=== PATIENT | male | born 1950 | race Caucasian/White ===

== ENCOUNTER 2019-10-20 14:56 | Inpatient (IN) | payer MEDICARE, SELFPAY ==
[2019-10-22] VITALS (9 sets, daily range): BP systolic 122–151; BP diastolic 75–84; PULSE 62–85; RESP 12–20; TEMP 36.3–37.1; O2SAT 93–95
[2019-10-22] MEDS: piperacillin-tazobactam 3.375 GM in sodium chloride 0.9% (plus) 50 ML IV ×3 (02:49→17:36)
[2019-10-22] MEDS: D5-NS 0.45% + KCL 20 mEq 20 MEQ/1,000 ML BAG 125 MEQ IV ×4 (02:50→21:45)
[2019-10-22 05:55] LABS: Add RBC Morph No
[2019-10-22 05:56] LABS: Basophils % 0.1 %; Eosinophils # 0.1 10^3/uL (0.0-0.8); Eosinophils % 1.6 %; Hematocrit 41.4 % (42.0-52.0); Hemoglobin 13.8 g/dL (11.7-16.6); Lymphocytes # 1.4 10^3/uL (0.8-4.8); Mean Corpuscular HGB Conc 33.3 g/dL (30.0-36.0); Mean Corpuscular Hemoglobin 30.5 pg (28.0-34.0); Mean Corpuscular Volume 91.4 fL (80-94); Mean Platelet Volume 11.1 fL (7.4-10.4); Monocytes # 1.2 10^3/uL (0.2-0.9); Neutrophils # 5.3 10^3/uL (1.8-7.7); Neutrophils % 65.9 %; Nucleated Red Blood Cells % 0 %; Platelet Count 240 10^3/cmm (130-400); Red Blood Count 4.53 10^6/uL (4.1-5.3); Red Cell Distribution Width 13.2 % (12.1-15.1)
--- NOTE | 2019-10-22 06:00 | XR_ITS ---
WS: [id number] ABDOMEN Supine view of the abdomen CLINICAL INFORMATION: SBO COMPARISON: FINDINGS: Enteric tube with tip in the stomach. Stomach air-fluid level has improved. Improving air-fluid level s in the small bowel. Persistent air within the colon. Pelvic phleboliths. XR/XR abdomen min 2V 45209 IMPRESSION: 1. Improved findings of small bowel obstruction. 2. Enteric tube with tip in stomach but improved air-fluid level
[2019-10-22] MEDS: oxyCODONE-APAP 5-325 mg Tablet 1 TAB PO ×5 (06:19→23:37)
[2019-10-22] MEDS: amlodipine 10 mg Tablet PO (08:00)
[2019-10-22] MEDS: pantoprazole DR 40 mg Tablet PO (08:01)
[2019-10-22] MEDS: donepezil 5 MG Tablet 10 MG PO (08:01)
[2019-10-22] MEDS: venlafaxine 75 mg Tablet PO (08:01)
[2019-10-22] MEDS: montelukast sodium 10 mg Tablet PO (08:01)
[2019-10-22 08:17] LABS: Anion Gap 13.9 (5-19); Blood Urea Nitrogen 30 mg/dL (8-23); Carbon Dioxide 27 mmol/L (22-29); Chloride 98 mmol/L (98-107); Glucose 113 mg/dL (74-106); Potassium 3.9 mmol/L (3.5-5.1); Sodium 135 mmol/L (136-145)
--- NOTE | 2019-10-22 09:46 | P.PN_ITS ---
Subjective Subjective: Interval history: Patient received a milk of molasses enema yesterday, initially did not have any response but overnight had to have the bag emptied out about 5 times He denies any abdominal pain, nausea or vomiting Vitals/I&O/Wt Last Vital Signs Temp 98.8 F 10/22/19 07:21 Pulse 62 10/22/19 07:21 Resp 18 10/22/19 07:21 BP 135/75 10/22/19 07:21 Pulse Ox 93 10/22/19 07:21 10/21/19 10/22/19 10/22/19 22:59 06:59 14:59 Intake Total 654.167 / 654.167 Output Total 1300 / 1300 50 / 50 Balance -1300 / -1300 604.167 / 604.167 Weight last 48 hrs Weight 82.554 kg Physical Exam GI: COMMON NORMALS: soft to palpation INSPECTION: Yes other (Well-healed midline scar, ostomy pink and functioning stool in the bag) PALPATION: Yes soft Data Labs: Other Labs: All Labs last 24 hrs except CBC/BMP 10/21/19 10/21/19 10/22/19 08:53 08:53 05:30 RBC 4.89 4.53 MCV 92.4 91.4 MCH 30.5 30.5 MCHC 33.0 33.3 RDW 13.7 13.2 MPV 11.3 H 11.1 H Neut % (Auto) 66.7 65.9 Lymph % (Auto) 16.3 17.0 [place] % (Auto) 15.4 15.0 Eos % (Auto) 1.2 1.6 Baso % (Auto) 0.1 0.1 Neut # (Auto) 6.3 5.3 Lymph # (Auto) 1.5 1.4 [place]kinson # (Auto) 1.4 H 1.2 H Eos # (Auto) 0.1 0.1 Baso # (Auto) 0.0 0.0 Nucleated RBC % (a uto) 0 0 Nucleated RBCs # 0.0 0.0 Random Glucose 120 H Calcium 9.4 10/22/19 05:30 RBC MCV MCH MCHC RDW MPV Neut % (Auto) Lymph % (Auto) Wilkinson % (Auto) Eos % (Auto) Baso % (Auto) Neut # (Auto) Lymph # (Auto) Wilkinson # (Auto) Eos # (Auto) Baso # (Auto) Nucleated RBC % (a uto) Nucleated RBCs # Random Glucose Calcium 9.0 A&P Assessment and plan (1) Small bowel obstruction: 69-year-old gentleman with small bowel obstruction likely secondary to adhesions currently appears to be resolving. Patient had a large ostomy output last night Start clear liquid diet Clamp NG tube 1 bottle of magnesium citrate If he tolerates clamping his NG tube we will plan for discontinuing the tube later today Status: Acute Code(s): K56.609 - Unspecified intestinal obstruction, unspecified as to partial versus complete obstruction Attestations Medical Necessity Statement*: Small bowel obstruction requiring continued inpatient stay to ensure resolution Coding Level of Care Code Acute Software Applications Specialist for [facility] Diagnoses Small bowel obstruction K56.609
[2019-10-22] MEDS: cetirizine 10 mg Tablet PO (09:57)
[2019-10-22] MEDS: magnesium citrate Btl 296 mL PO ×2 (13:05→17:33)
[2019-10-22] MEDS: enoxaparin 40 mg/0.4 mL Syringe SUBCUT (16:10)
[2019-10-22] MEDS: lactulose oral liq 20 gm/30 mL UDC 10 GM PO (17:33)
[2019-10-22] MEDS: metoprolol tartrate 50 mg Tablet 100 MG PO (20:25)
[2019-10-22] MEDS: atorvastatin 40 mg Tablet 20 MG PO (20:25)
[2019-10-23] VITALS (7 sets, daily range): BP systolic 123–145; BP diastolic 69–77; PULSE 54–65; RESP 16–18; TEMP 36.4; O2SAT 93–97
[2019-10-23] MEDS: piperacillin-tazobactam 3.375 GM in sodium chloride 0.9% (plus) 50 ML IV (01:27)
[2019-10-23] MEDS: oxyCODONE-APAP 5-325 mg Tablet 1 TAB PO (04:05)
[2019-10-23 05:41] LABS: Basophils % 0.1 %; Eosinophils # 0.2 10^3/uL (0.0-0.8); Eosinophils % 2.7 %; Hematocrit 39.3 % (42.0-52.0); Hemoglobin 12.6 g/dL (11.7-16.6); Lymphocytes # 1.3 10^3/uL (0.8-4.8); Lymphocytes % 18.2 %; Mean Corpuscular HGB Conc 32.1 g/dL (30.0-36.0); Mean Corpuscular Hemoglobin 31.1 pg (28.0-34.0); Mean Platelet Volume 10.7 fL (7.4-10.4); Monocytes # 0.9 10^3/uL (0.2-0.9); Monocytes % 12.7 %; Neutrophils # 4.6 10^3/uL (1.8-7.7); Neutrophils % 65.6 %; Nucleated Red Blood Cells % 0 %; Platelet Count 227 10^3/cmm (130-400); Red Blood Count 4.05 10^6/uL (4.1-5.3)
[2019-10-23 05:45] LABS: Add RBC Morph No
[2019-10-23] MEDS: D5-NS 0.45% + KCL 20 mEq 20 MEQ/1,000 ML BAG 125 MEQ IV ×2 (05:48→09:01)
[2019-10-23 06:04] LABS: Anion Gap 12.9 (5-19); Blood Urea Nitrogen 16 mg/dL (8-23); Calcium 8.4 mg/Dl (8.8-10.2); Carbon Dioxide 25 mmol/L (22-29); Chloride 102 mmol/L (98-107); Glucose 118 mg/dL (74-106); Potassium 3.9 mmol/L (3.5-5.1); Sodium 136 mmol/L (136-145)
[2019-10-23] MEDS: venlafaxine 75 mg Tablet PO (09:02)
[2019-10-23] MEDS: montelukast sodium 10 mg Tablet PO (09:03)
[2019-10-23] MEDS: cetirizine 10 mg Tablet PO (09:03)
[2019-10-23] MEDS: pantoprazole DR 40 mg Tablet PO (09:03)
[2019-10-23] MEDS: donepezil 5 MG Tablet 10 MG PO (09:03)
[2019-10-23] MEDS: amlodipine 10 mg Tablet PO (09:03)
[2019-10-23] MEDS: lactulose oral liq 20 gm/30 mL UDC 10 GM PO (09:04)
--- NOTE | 2019-10-23 11:14 | PC.SOCIAL ---
IMM Page 2 of IMM explained to and signed by patient's at bedside. They both verbalize understanding. Initialed, dated, and timed and placed in chart. Copy provided to patient.
--- NOTE | 2019-10-23 12:56 | PM.PN ---
Subjective Subjective: Interval history: Patient has been doing well, had significant ostomy output. Tolerating a full liquid diet. Vitals/I&O/Wt Last Vital Signs Temp 97.5 F L 10/23/19 12:00 Pulse 62 10/23/19 12:00 Resp 16 10/23/19 12:00 BP 145/74 10/23/19 12:00 Pulse Ox 97 10/23/19 12:00 10/22/19 10/23/19 10/23/19 22:59 06:59 14:59 Intake Total 2170 / 3994.167 1120.000 / 3994.167 522.083 / 522.083 Output Total 1275 / 1475 150 / 1475 300 / 300 Balance 895 / 2519.167 970.000 / 2519.167 222.083 / 222.083 Weight last 48 hrs Weight 185 lb 3.2 oz Weight 183 lb 3.2 oz Physical Exam GI: COMMON NORMALS: normal to inspection, nondistended, normoactive bowel sounds INSPECTION: Yes ostomy present (Functioning well) A&P Assessment and plan (1) Small bowel obstruction: Small bowel obstruction resolved with conservative measures DC home on Colace and lactulose Follow-up with Dr. Carrillo for right renal mass Status: Resolved Code(s): K56.609 - Unspecified intestinal obstruction, unspecified as to partial versus complete obstruction Attestations Medical Necessity Statement*: Small bowel obstruction resolved, discharged home Coding Level of Care Code Acute Access Control Specialist for [facility] Fwd Diagnoses Small bowel obstruction K56.609
--- NOTE | 2019-10-23 12:57 | P.DS_ITS ---
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 Patient had undergone colostomy as well as ureteroureterostomy about 15 years ago. Patient has never had an episode of bowel obstruction but recently had been taking a lot of pain medications and presented to the ER with abdominal pain and distention along with a nonfunctioning ostomy. A CT scan showed small bowel obstruction. Patient did not have any evidence of peritonitis. Hospital Course Hospital Course: The patient was admitted to the hospital after an NG tube was placed by Dr. Moya. About 1800 cc of enteric contents were aspirated and patient's abdominal distention and pain improved. Patient subsequently received a milk of molasses enema with significant ostomy output. Patient was then given 3 bottles of magnesium citrate with resolution of obstruction. His NG tube was discontinued and at time of discharge he was tolerating a full liquid diet Physical Exam GI: COMMON NORMALS: normal to inspection, nondistended, normoactive bowel sounds INSPECTION: Yes ostomy present (Functioning) and Yes other Discharge Data Data Completed and Pending: Completed Studies During Hospitalization Category Date Time Status XR abdomen min 2V 27355 Routine Exams 10/22/19 06:00 Completed Pending at discharge Category Date Time Status BMP [Basic Metabo lic Panel] AM LABS Lab 10/24/19 04:00 Ordered Complete Blood Co unt w/Auto AM LABS Lab 10/24/19 04:00 Ordered Labs from last 24 hours 10/23/19 10/23/19 05:29 05:29 WBC 7.0 RBC 4.05 L Hgb 12.6 Hct 39.3 L MCV 97.0 H D MCH 31.1 MCHC 32.1 RDW 13.0 Plt Count 227 MPV 10.7 H Neut % (Auto) 65.6 Lymph % (Auto) 18.2 [place] % (Auto) 12.7 Eos % (Auto) 2.7 Baso % (Auto) 0.1 Neut # (Auto) 4.6 Lymph # (Auto) 1.3 [place] # (Auto) 0.9 Eos # (Auto) 0.2 Baso # (Auto) 0.0 Nucleated RBC % (a uto) 0 Nucleated RBCs # 0.0 Sodium 136 Potassium 3.9 Chloride 102 Carbon Dioxide 25 Anion Gap 12.9 BUN 16 Creatinine 0.9 Glucose 118 H Calcium 8.4 L Vitals: Last Vital Signs Temp 97.5 F L 10/23/19 12:00 Pulse 62 10/23/19 12:00 Resp 16 10/23/19 12:00 BP 145/74 10/23/19 12:00 Pulse Ox 97 10/23/19 12:00 Discharge Plan Discharge Patient Disposition: Home, Self-Care Condition: Stable Prescriptions: New lactulose 20 gram/30 mL Solution 10 g PO BID Qty: 1 RF: 3 Continued venlafaxine 75 mg Tablet 75 mg PO DAILY RF: 0 cetirizine 10 mg Tablet 10 mg PO DAILY RF: 0 metoprolol tartrate 100 mg Tablet 100 mg PO BEDTIME RF: 0 hydrocodone-acetaminophen 5-325 mg Tablet 1 tab PO Q5H PRN (Reason: Pain, Severe) RF: 0 donepezil 10 mg tablet 10 mg PO DAILY RF: 0 amitriptyline 50 mg Tablet 50 mg PO BEDTIME RF: 0 oxycodone-acetaminophen 5-325 mg tablet 5 - 325 tab PO Q4H PRN (Reason: Pain, Severe) RF: 0 amoxicillin 875 mg Tablet 875 mg PO BID RF: 0 amlodipine 10 mg Tablet 10 mg PO DAILY RF: 0 simvastatin 20 mg Tablet 20 mg PO QPM RF: 0 omeprazole 20 mg Capsule,Delayed Release(Dr/Ec) 20 mg PO DAILY RF: 0 montelukast 10 mg tablet 10 mg PO DAILY RF: 0 Discharge Orders: Discharge Order (Routine); Ordered 10/23/19 Ordered By: Jaime Villalobos Referrals: Santino Carrillo MD [Physician] - 1 week ([facility] WILL CALL YOU WITH YOUR APPOINTMENT. PLEASE CALL IF YOU HAVE NOT HEARD FROM THEM BY SUNDAY. Right renal mass on recent CT scan for SBO, has h/o prostate ca) Jaime Villalobos MD [Physician] - (PLEASE FOLLOW UP WITH DR. VILLALOBOS NEEDED.) Discharge Diet: GI Soft Discharge Activity: Resume usual activity Patient Instructions: Lactulose (By mouth), Bowel Obstruction (DC) Discharge Date/Time: 10/23/19 15:30 Discharge Attestations Time Spent in Discharge Care*: less than 30 min Quality Metrics Clinical Quality Measures During this hospital stay, did patient experience: None Coding Level of Care Code Acute Dielectric Machine Operator for [facility] Fwd Diagnoses Small bowel obstruction K56.609
== END 2019-10-23 15:30 | disposition home or self-care (01) | DRG 390 ==
PROVIDERS: Admitting Provider Family Medicine; Family Provider Family Medicine; PCP Family Medicine; Referring Provider Family Medicine; Visit Provider Surgery
DX: K56.50 Intestinal adhesions [bands], unspecified as to partial versus complete obstruction (principal); C61 Malignant neoplasm of prostate; Z93.3 Colostomy status; Z92.3 Personal history of irradiation; Z79.891 Long term (current) use of opiate analgesic; I10 Essential (primary) hypertension; Z87.891 Personal history of nicotine dependence; N28.89 Other specified disorders of kidney and ureter; Z93.6 Other artificial openings of urinary tract status
CPT/HCPCS: 36415; 71045; 74018; 74019; 74177; 80048; 80053; 81001; 82009; 83605; 83690; 85025; 85610; 85730; 87040; 96361; 96374; 96375; 96376; 97161; 97530; 99285; C9113; J1650; J2060; J2405; J2543; J3010; J3490; Q9967

== ENCOUNTER → 2019-10-27 10:32 | Outpatient (BNVA) | payer MEDICARE, SELFPAY | PROVIDERS: Family Provider Family Medicine; PCP Family Medicine; Visit Provider Nurse Practitioner Family | DX: N99.89 Other postprocedural complications and disorders of genitourinary system (principal) | CPT/HCPCS: 81001 ==

== ENCOUNTER 2022-03-06 20:53 | Emergency (ER) | payer MEDICARE, SELFPAY ==
[2022-03-06 20:57] VITALS: BP 184/92; PULSE 77; RESP 16; TEMP 36.6; O2SAT 96; BMI 27.0
--- NOTE | 2022-03-06 21:09 | XRR_ITS ---
PROCEDURE INFORMATION: Exam: XR Left Wrist Exam date and time: 03/06/2022 9:24 PM Age: 71 years old Clinical indication: Pain; Wrist; Left; Additional info: Fall, deformity TECHNIQUE: Imaging protocol: XR Left wrist. Views: 3 or more views. COMPARISON: No relevant prior studies available. FINDINGS: Bones/joints: Comminuted fracture of the distal radius. Fracture extends to the articular surface. There is dorsal angulation of the distal articular surface of the radius. Distal ulna appears intact. Carpal bones appear intact. Soft tissues: Soft tissue swelling noted. XR/XR wrist LT min 3V* [id number] IMPRESSION: Comminuted Colles fracture, left wrist.
--- NOTE | 2022-03-06 21:32 | W.ED.EXTPRO ---
Documented by User: ROSENDA Truong 03/07/22 03:10 HPI - Extremity Problem General: Chief complaint: Extremity Injury, Upper Stated complaint: L wrist injury Time Seen by Provider: 03/06/22 21:19 History of Present Illness: Patient is a 71-year-old male comes to the ED with left wrist injury. 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 After fall patient started developing left wrist pain and swelling. His pain in his left wrist is currently an 8 out of 10. He has not taken anything for pain before coming to the ED. Denies any head trauma or loss of consciousness. Associated symptoms: Deny chest pain, fever(s) or rash Review of Systems Const: Denies: fever(s), chills or fatigue Eyes: Denies: change in vision or eye discomfort ENMT: Denies: throat pain, odynophagia, nasal discharge or nasal congestion Card: Denies: chest pain, palpitations, edema, swelling of feet/ankles, dyspnea on exertion or orthopnea Resp: Denies: dyspnea, productive cough or non-productive cough GI: Denies: abdominal pain, nausea, vomiting, diarrhea, constipation or hematochezia : Denies: flank pain, difficulty urinating, dysuria or hematuria Musc: Reports: extremity pain (left wrist), extremity swelling (left wrist) and limited range of motion (Left wrist due to pain); Denies: neck pain or back pain Skin/Breast: Denies: rash or new lesions Neuro: Denies: headache(s), numbness in extremities or weakness in extremities [facility] ED PFSH: Medical History (Updated 03/10/22 @ 07:04 by Arina Diego MD) Hypertension Prostatic cancer Surgical History H/O hernia repair History of ureterostomy Hx of colostomy Hx of hemorrhoidectomy Family History Father , in his 50's-run over by a car heart disease No problems noted. Mother , in her 80's -colon cancer No problems noted. Social History Smoking and tobacco status: never smoked Alcohol intake: current Alcohol intake frequency: holidays/special occasions only Marital status: Current occupational status: retired Physical Exam Const: COMMON NORMALS: patient oriented x3 and alert GENERAL APPEARANCE: cooperative HENMT: COMMON NORMALS: normocephalic HEAD & SCALP: normocephalic MOUTH: Normal oral and palatal mucosa present THROAT: posterior oropharynx normal and uvula midline Neck/C-Spine: COMMON NORMALS: supple GENERAL: Yes normal visual inspection Resp: COMMON NORMALS: normal respiratory effort, No retractions, No use of accessory muscles and clear to auscultation bilaterally AUSCULTATION: clear to auscultation bilaterally Cardio: COMMON NORMALS: regular rate, regular rhythm, S1 normal heart sound present, S2 normal heart sound present, No gallops present (Cardio), No clicks present (Cardio), No murmurs present (Cardio) and Peripheral pulses 2+ throughout RATE: regular rate RHYTHM: regular rhythm HEART SOUNDS: S1 normal heart sound present and S2 normal heart sound present PERIPHERAL PULSES: Peripheral pulses 2+ throughout GI: COMMON NORMALS: Normal to inspection, nondistended, normoactive bowel sounds present, Soft to palpation, non-tender and no masses PALPATION: Yes Soft to palpation : COMMON NORMALS: Yes no CVA tenderness BLADDER/KIDNEY EXAM: Yes no CVA tenderness Back/Pelvis: COMMON NORMALS: no CVA tenderness Extremity: LEFT UPPER EXTREMITY: Yes wrist Left wrist: Yes inspection (Visible deformity and swelling noted.), Yes palpation (Tenderness over radial aspect of wrist), Yes ROM (Limited due to pain) and Yes neurovascular exam (Intact) Neuro: COMMON NORMALS: patient oriented x3 and moves all extremities SENSORIUM/ORIENTATION: Yes alert Skin: GENERAL SKIN EXAM: dry skin Course Vital Signs: Vital signs: Vital Signs Temperature 97.9 F 03/06/22 20:57 Pulse Rate 77 03/06/22 20:57 Respiratory Rate 20 H 03/06/22 22:07 Blood Pressure 184/92 03/06/22 20:57 Pulse Oximetry 96 03/06/22 20:57 MDM - Extremity (Nontraumatic) Medical Decision Making Patient is a 71-year-old male comes to the ED with fall and left wrist injury. He has visible swelling around the left wrist with noted deformity. Tenderness to palpation over radial aspect of wrist. Limited range of motion due to pain. Neurovascular tact. X-ray left wrist showed comminuted Colles' fracture. Patient was put in a sugar-tong splint. I placed an order with manager case management patient be referred to Ortho for follow-up. Return to ED precautions given. Patient was discharged home with a prescription for hydrocodone for pain. Patient was told case management should contact them next several days to set up an appointment with Ortho. Patient understood and agreed with plan. Lab Data Radiology Impressions Wrist X-Ray 03/06/22 21:09 IMPRESSION: Comminuted Colles fracture, left wrist. Discharge Plan Discharge Patient Disposition: Home Clinical Impression: Wrist fracture, left Qualifiers: Encounter type: initial encounter Fracture type: closed Qualified Code(s): S62.102A - Fracture of unspecified carpal bone, left wrist, initial encounter for closed fracture Condition: Stable Prescriptions: No Action fluticasone furoate 27.5 mcg/actuation spray,suspension 1 spray INTRANASAL ONCE 0RF memantine [Namenda] 10 mg tablet 10 mg PO BID 0RF metoprolol succinate 100 mg tablet extended release 24 hr 100 mg PO DAILY Qty: 90 0RF venlafaxine 75 mg Tablet 75 mg PO DAILY 0RF cetirizine 10 mg Tablet 10 mg PO DAILY 0RF hydrocodone-acetaminophen 5-325 mg Tablet 1 tab PO Q5H PRN (Reason: Pain, Severe) 0RF amlodipine 10 mg Tablet 10 mg PO DAILY 0RF simvastatin 20 mg Tablet 20 mg PO QPM 0RF omeprazole 20 mg Capsule,Delayed Release(Dr/Ec) 20 mg PO DAILY 0RF montelukast 10 mg tablet 10 mg PO DAILY 0RF furosemide 40 mg Tablet 40 mg PO DAILY 0RF potassium chloride 10 mEq tablet extended release 10 meq PO DAILY 0RF loratadine 10 mg tablet 10 mg PO PRN 0RF oxycodone-acetaminophen 5-325 mg tablet 5 - 325 tab PO Q4H PRN (Reason: Pain, Severe) 7 Days Qty: 30 0RF Discharge Orders: Discharge ED (Routine); Ordered 03/06/22 Ordered By: Missael Palacios Referrals: Lamin Lewis MD [Primary Care Provider] - Discharge Diet: Regular Discharge Activity: Limit activity as instructed Patient Instructions: Wrist Fracture in Adults (ED), Opioid Safety Activity Restrictions/Additional Instructions: Follow-up with medical provider as directed. Case management should be contacting you in the next several days to set up an appointment with Ortho for further management of wrist fracture. Take medications as prescribed. Keep splint on and dry and limit activity with left hand. Return to the ER or your medical provider if condition worsens. Please read and understand discharge instructions. Thank you for choosing [facility] for your healthcare needs today. Please realize this is an emergency room and that we are providing you with a medical screening exam and this may not be complete and all inclusive of all the testing and or work up that you may need to determine your ailment or severity of your illness. It is very important that you follow up as instructed or that you return to the Emergency Department should you have concerns or if your condition changes or worsens in any way. Coding Level of Care Code ED Hand Cell Tuber for Chg Fwd Exam Comprehensive Documented by User: Kishore Her MD 03/12/22 02:41 HPI - Extremity Problem General: Chief complaint: Extremity Injury, Upper Stated complaint: L wrist injury Time Seen by Provider: 03/06/22 21:19 [facility] ED PFS: Medical History (Updated 03/10/22 @ 07:04 by Arina Diego MD) Hypertension Prostatic cancer Surgical History H/O hernia repair History of ureterostomy Hx of colostomy Hx of hemorrhoidectomy Family History Father , in his 50's-run over by a car heart disease No problems noted. Mother , in her 80's -colon cancer No problems noted. Social History Smoking and tobacco status: never smoked Alcohol intake: current Alcohol intake frequency: holidays/special occasions only Marital status: Current occupational status: retired Course Vital Signs: Vital signs: Vital Signs Temperature 97.9 F 03/06/22 20:57 Pulse Rate 77 03/06/22 20:57 Respiratory Rate 20 H 03/06/22 22:07 Blood Pressure 184/92 03/06/22 20:57 Pulse Oximetry 96 03/06/22 20:57 MDM - Extremity (Nontraumatic) Medical Decision Making Patient is a 71-year-old male comes to the ED with fall and left wrist injury. He has visible swelling around the left wrist with noted deformity. Tenderness to palpation over radial aspect of wrist. Limited range of motion due to pain. Neurovascular tact. X-ray left wrist showed comminuted Colles' fracture. Patient was put in a sugar-tong splint. I placed an order with manager case management patient be referred to Ortho for follow-up. Return to ED precautions given. Patient was discharged home with a prescription for hydrocodone for pain. Patient was told case management should contact them next several days to set up an appointment with Ortho. Patient understood and agreed with plan. I discussed this case with ROSENDA Truong. I personally reviewed x-ray. Likely no significant improvement in the alignment can be obtained with the ER reduction. Plan to follow-up outpatient with orthopedics. Kishore Her MD Emergency Medicine Lab Data Radiology Impressions Wrist X-Ray 03/06/22 21:09 IMPRESSION: Comminuted Colles fracture, left wrist. Discharge Plan Discharge Patient Disposition: Home Clinical Impression: Wrist fracture, left Qualifiers: Encounter type: initial encounter Fracture type: closed Qualified Code(s): S62.102A - Fracture of unspecified carpal bone, left wrist, initial encounter for closed fracture Condition: Stable Prescriptions: No Action fluticasone furoate 27.5 mcg/actuation spray,suspension 1 spray INTRANASAL ONCE 0RF memantine [Namenda] 10 mg tablet 10 mg PO BID 0RF metoprolol succinate 100 mg tablet extended release 24 hr 100 mg PO DAILY Qty: 90 0RF venlafaxine 75 mg Tablet 75 mg PO DAILY 0RF cetirizine 10 mg Tablet 10 mg PO DAILY 0RF hydrocodone-acetaminophen 5-325 mg Tablet 1 tab PO Q5H PRN (Reason: Pain, Severe) 0RF amlodipine 10 mg Tablet 10 mg PO DAILY 0RF simvastatin 20 mg Tablet 20 mg PO QPM 0RF omeprazole 20 mg Capsule,Delayed Release(Dr/Ec) 20 mg PO DAILY 0RF montelukast 10 mg tablet 10 mg PO DAILY 0RF furosemide 40 mg Tablet 40 mg PO DAILY 0RF potassium chloride 10 mEq tablet extended release 10 meq PO DAILY 0RF loratadine 10 mg tablet 10 mg PO PRN 0RF oxycodone-acetaminophen 5-325 mg tablet 5 - 325 tab PO Q4H PRN (Reason: Pain, Severe) 7 Days Qty: 30 0RF Discharge Orders: Discharge ED (Routine); Ordered 03/06/22 Ordered By: Missael Palacios Referrals: Lamin Lewis MD [Primary Care Provider] - Discharge Diet: Regular Discharge Activity: Limit activity as instructed Patient Instructions: Wrist Fracture in Adults (ED), Opioid Safety Activity Restrictions/Additional Instructions: Follow-up with medical provider as directed. Case management should be contacting you in the next several days to set up an appointment with Ortho for further management of wrist fracture. Take medications as prescribed. Keep splint on and dry and limit activity with left hand. Return to the ER or your medical provider if condition worsens. Please read and understand discharge instructions. Thank you for choosing [facility] for your healthcare needs today. Please realize this is an emergency room and that we are providing you with a medical screening exam and this may not be complete and all inclusive of all the testing and or work up that you may need to determine your ailment or severity of your illness. It is very important that you follow up as instructed or that you return to the Emergency Department should you have concerns or if your condition changes or worsens in any way. Coding Level of Care Code ED Hand Cell Tuber for Daniela Pichardo Exam Comprehensive
[2022-03-06 21:41] VITALS: RESP 20
[2022-03-06] MEDS: morphine 4 mg/mL SDV 1 mL IM (21:41)
[2022-03-06 22:07] VITALS: RESP 20
[2022-03-06] MEDS: oxyCODONE-APAP 5-325 mg Tablet 2 TAB PO (22:07)
--- NOTE | 2022-03-06 22:08 | PC.NURSE ---
2 percocet given for home
--- NOTE | 2022-03-06 22:16 | PC.NURSE ---
splint maded with 28 inches 4inch ortho glass stockette and soft roll and 2 inch juju and 6 inch juju
--- NOTE | 2022-03-08 08:41 | DCPLANNER ---
Addendum entered by Amee Diaz 03/16/22 16:19: Patient had a follow up appointment scheduled for 03.08.22 with ortho - patient did attend appointment. Original Note: mail manager had message to schedule a follow up appointment for patient with ortho. mail manager sent patients information to the front office staff at ortho. Patients information will be printed and reviewed. Clinic will call patient with appointment information.
== END 2022-03-06 22:20 | disposition home or self-care (01) ==
PROVIDERS: Emergency Provider Physician Assistant; PCP Family Medicine
DX: S52.532A Colles' fracture of left radius, initial encounter for closed fracture (principal); W18.09XA Striking against other object with subsequent fall, initial encounter; Y92.79 Other farm location as the place of occurrence of the external cause
CPT/HCPCS: 29125; 73110; 96372; 99283; J2270

== ENCOUNTER → 2022-03-08 11:10 | Outpatient (BNVA) | payer MEDICARE, SELFPAY | PROVIDERS: PCP Family Medicine; Referring Provider Physician Assistant; Visit Provider Specialist | DX: S52.572A Other intraarticular fracture of lower end of left radius, initial encounter for closed fracture (principal); W01.0XXA Fall on same level from slipping, tripping and stumbling without subsequent striking against object, initial encounter; R07.9 Chest pain, unspecified | CPT/HCPCS: 71046; 99204 ==

== ENCOUNTER 2022-03-10 06:02 | Day surgery (SDC) | payer MEDICARE, SELFPAY ==
[2022-03-09 11:11] VITALS: BMI 26.4
[2022-03-10] VITALS (8 sets, daily range): BP systolic 131–169; BP diastolic 74–99; PULSE 80–98; RESP 12–18; TEMP 36.2–36.6; O2SAT 93–97
--- NOTE | 2022-03-10 | SCC_ITS ---
Procedure done: Open reduction internal fixation left distal radius fracture 88.5 seconds of fluoroscopic guidance, for a cumulative dose of 2.2 mGy, was provided to Dr. Diego by the radiology department. C-arm images of the LEFT wrist were saved for the patient's permanent record. [facility]ali[facility]
--- NOTE | 2022-03-10 | XR_ITS ---
WS: [id number] Left wrist, C-arm fluoroscopy, 03/10/2022, Clinical Data: fracture, orif Comparison: Left wrist, 03/06/2022 Findings: Dr. Diego placed a ventral plate on the distal left radius fixed with multiple screws to reduce a com minuted distal left radial fracture. XR/XR wrist LT 2V [id number] Impression: Internal fixation of distal left radial fracture.
--- NOTE | 2022-03-10 06:51 | ANES.PREANE2 ---
Pre-Anesthetic Assessment Height/Weight: Height 1.85 m Weight 90.718 kg Preop Diagnosis: Left distal radius fracture Operation Date: 03/10/22 07:00 Proposed Procedures p OPEN REDUCTION INTERNAL FIXATION LEFT DISTAL RADIUS FRACTURE 04798/S52.509A(Left) - Arina Diego MD Familial anesthetic complications: None Was Beta Cash taken within 24 hours: N/A Was Clonidine taken within 24 hours: N/A Last intake: > 8hrs Social No alcohol and No tobacco Exam alert, oriented x 3, clear to auscultation bilaterally and regular rate & rhythm Airway Mallampati: Class III Dentition: false Pulmonary None reported CV/HEM Hypertension RBBB None reported Hepatic None reported GI Gastroesophageal Reflux Disease Hx colon resection Metabolic None reported Musc/skel None Neuropsych None reported Anesthetic Plan ASA status: 3 Anesthesia: General and Regional (specify below) Risk of > 500 ml blood loss (7ml/kg in children): No Medications/Allergies Home Medications Medication Instructions Recorded Confirmed Last Taken Type amlodipine 10 mg tablet 10 mg PO DAILY 10/21/19 03/10/22 03/10/22 History cetirizine 10 mg tablet 10 mg PO DAILY 10/21/19 03/09/22 03/09/22 History hydrocodone 5 mg-acetaminophen 325 1 tab PO Q5H PRN 10/21/19 03/09/22 03/09/22 History mg tablet montelukast 10 mg tablet 10 mg PO DAILY 10/21/19 03/09/22 03/09/22 History omeprazole 20 mg capsule,delayed 20 mg PO DAILY 10/21/19 03/09/22 03/09/22 History release oxycodone-acetaminophen 5 mg-325 5 - 325 tab PO Q4H PRN 10/21/19 03/09/22 10/18/19 History mg tablet simvastatin 20 mg tablet 20 mg PO QPM 10/21/19 03/09/22 03/09/22 History venlafaxine 75 mg tablet 75 mg PO DAILY 10/21/19 03/10/22 03/09/22 History fluticasone furoate 27.5 1 spray INTRANASAL ONCE 10/27/19 03/09/22 03/09/22 History mcg/actuation nasal spray,suspension metoprolol succinate 100 mg 100 mg PO DAILY #90 tab 04/16/20 03/10/22 03/10/22 Rx tablet,extended release 24 hr memantine 10 mg tablet (Namenda) 10 mg PO BID 03/08/22 03/10/22 03/09/22 History furosemide 40 mg tablet 40 mg PO DAILY 03/09/22 03/09/22 03/09/22 History potassium chloride 10 mEq 10 meq PO DAILY 03/09/22 03/09/22 03/09/22 History tablet,extended release loratadine 10 mg tablet 10 mg PO PRN 03/10/22 03/10/22 Unknown History Allergies Allergy/AdvReac Type Severity Reaction Status Date / Time Sulfa (Sulfonamide Allergy ALGY-Rash Verified 03/09/22 11:03 Antibiotics) [facility] Anesthesia Medical History Hypertension Prostatic cancer Surgical History H/O hernia repair History of ureterostomy Hx of colostomy Hx of hemorrhoidectomy Family History Father , in his 50's-run over by a car heart disease No problems noted. Mother , in her 80's -colon cancer No problems noted. Social History Smoking and tobacco status: never smoked Alcohol intake: current Alcohol intake frequency: holidays/special occasions only Marital status: Current occupational status: retired Data Anesthesia Cardiac Studies: No Data to Display
[2022-03-10] MEDS: sodium chloride 0.9% 1,000 ML 30 ML IV (06:52)
[2022-03-10] MEDS: CELEcoxib 200 mg Capsule 400 MG PO (06:54)
[2022-03-10] MEDS: acetaminophen 1,000 MG/100 ML PIGGYBACK 400 MG IV (06:54)
--- NOTE | 2022-03-10 07:03 | W.PM.OPSUD ---
Surgery/Procedure H&P Update DATE OF PROCEDURE: March 10, 2022 DATE H&P PERFORMED: 03/08/22 H&P UPDATE INFORMATION: I have reviewed H&P completed within last 30 days, I have examined patient prior to procedure, No changes to prior documentation and H&P is in [facility] EMR on date indicated PREOP DIAGNOSIS: Left distal radius fracture PLANNED PROCEDURE: Operation Date: 03/10/22 07:00 Proposed Procedures p OPEN REDUCTION INTERNAL FIXATION LEFT DISTAL RADIUS FRACTURE 09455/S52.509A(Left) - Arina Diego MD Related Problem List Diagnoses (1) Distal radius fracture, left: Qualifiers: Encounter type: initial encounter Fracture type: closed Fracture morphology: other intra-articular Qualified Code(s): S52.572A - Other intraarticular fracture of lower end of left radius, initial encounter for closed fracture
[2022-03-10 08:00] LABS: Blood Urea Nitrogen 30 mg/dL (8-23); Calcium 7.8 mg/dL (8.5-10.5); Carbon Dioxide 20 mmol/L (22-29); Chloride 102 mmol/L (98-107); Glucose 117 mg/dL (65-115); Osmolality Calculated 289 mOsm/kg (285-295); Sodium 136 mmol/L (136-145)
[2022-03-10 08:02] LABS: Anion Gap 17.8 (5-19); Potassium 3.8 mmol/L (3.5-5.1)
[2022-03-10] MEDS: ceFAZolin 1,000 mg SDV 1000 MG IRRIGATION (08:51)
--- NOTE | 2022-03-10 10:13 | P.OP_ITS ---
Operative Report Date of procedure: March 10, 2022 Pre-op diagnosis: Left distal radius fracture Post-op diagnosis: Left distal radius fracture Post-op findings: Significantly displaced comminuted distal radius fracture with displacement dorsally of the distal fragment Procedure done: Open reduction internal fixation left distal radius fracture Implants: [place] distal radius volar plate, intermediate, short Pathology: none sent Surgeon: Arina Diego Drawer Upfitter: [facility] registered respiratory technician Anesthesia: General (Intubated, ASA 3) Estimated blood loss (mL): 5 Tourniquet time (min): 65 (At 250 mmHg) IV fluids (mL): 700 Urine output (mL): 0 (No Red) Complications: None Findings: Significantly displaced dorsal displacement. Comminution. Condition: stable Disposition: PACU (Then return to same-day surgery for discharge home with family) Brief History: This 71 year old male patient presented to the office for definitive treatment of his left distal radius fracture. DOI: 03/06/2022, Patient states he fell after tripping over a cattle panel in his garden.? Patient attempted to stop his fall by putting hands straight out. Patient presented to the [facility] where he was diagnosed with a distal fracture and was placed in a sugar tong splint. At that time, discussion was undertaken with the patient and his , and due to the significant displacement, we elected to proceed with operative intervention in the form of open reduction internal fixation. Consents were signed, questions were answered, and the patient was scheduled for the surgical intervention. Procedure: Patient was brought to the operating theater, and after undergoing adequate general anesthesia, intubated, ASA 3, the patient's left upper extremity was prepped and draped in usual fashion utilizing DuraPrep.? No supplemental block was placed, but the patient will be evaluated prior to discharge, and if needed, this will be discussed with the patient per anesthesia. The patient had a tourniquet placed high on the arm prior to prepping and draping.? Following prepping and draping, the arm was exsanguinated and the tourniquet was elevated.? Total tourniquet time was 65 minutes at 250 mmHg.? Prior to commencement of the surgical procedure, a surgical pause was performed.? At the time of the surgical pause, we confirmed the site and side of surgery as well as the patient's identity and preoperative surgical markings.? We also confirmed availability of equipment and appropriate preoperative IV antibiotics which was Ancef 2 g.? Fluoroscopy was also brought into position so that we could visualize the fracture and hardware throughout the surgical procedure.? The fracture was evaluated prior to tourniquet placement. Following elevation of the tourniquet as well as the surgical pause, appropriate plate was chosen. The skin was marked for appropriate incision length and location. An incision was made along the palmaris longus and continued down onto the volar surface of the radius.? Care was taken to avoid injury throughout the surgical procedure to the median nerve as well as to the radial artery.? The flexor carpi radialis was retracted medially.? We were able to essentially elevate the sheath of the flexor carpi radialis, and then I was able to place my finger directly onto the distal radius.? For the most part, the patient did his own dissection at the time of his injury.? Soft tissues were elevated off the distal radius to allow access to the fracture and also to the volar aspect of the distal radial shaft.? Reduction required manipulation with a [place] elevator secondary to the significant displacement.? Fluoroscopy was used to determine whether or not the reduction was appropriate.? We were able to reduce the fracture nearly anatomically.? We then evaluated the plate and chose the intermediate short Tanner volar distal radius plate.? The plate was attached proximally and distally without difficulty.? A combination of locking and 1 nonlocking screws were utilized to attach the plate.? We had excellent fixation and reduction of the fracture. Fluoroscopy was utilized during the procedure.? Once the plate was fully attached, we had a near anatomic position to the distal radius and the distal radius was out to length.? Being satisfied with position, the area was copiously irrigated. There were no fascial tissues to close, and therefore, we closed the subcutaneous tissues with 3-0 interrupted Monocryl.? Skin was closed in a subcuticular fashion with 4-0 Monocryl.?Sterile dressing was then placed consisting of Dermabond, Steri-Strips, OpSite, fluffed fluffs, sterile soft roll, a volar splint, and an Vinny wrap. The tourniquet was released after 65 minutes. There were no complications. There were no specimens. The procedure was well tolerated. Plan is the patient will be discharged home.
[2022-03-10] MEDS: oxyCODONE-APAP 5-325 mg Tablet 1 TAB PO (10:44)
--- NOTE | 2022-03-10 13:00 | ANE.PACU2 ---
Inpatient post-anesthesia follow up: Airway intact: Yes Vital signs: Temperature 97.8 F Pulse Rate 97 Respiratory Rate 18 Blood Pressure 154/88 Pulse Oximetry 95 Oxygen Delivery Me thod Room Air Oxygen Flow Rate Fraction of Inspir ed Oxygen Hydration adequate: Yes Nausea and vomiting: No Pain level: 1 Mental status: Baseline
== END 2022-03-10 11:08 | disposition home or self-care (01) ==
PROVIDERS: PCP Family Medicine; Visit Provider Specialist
PROC: (CPT 25607; principal; 2022-03-10 07:00)
DX: S52.502A Unspecified fracture of the lower end of left radius, initial encounter for closed fracture (principal); W01.0XXA Fall on same level from slipping, tripping and stumbling without subsequent striking against object, initial encounter; I10 Essential (primary) hypertension; K21.9 Gastro-esophageal reflux disease without esophagitis; Z90.49 Acquired absence of other specified parts of digestive tract; Z85.46 Personal history of malignant neoplasm of prostate
CPT/HCPCS: 25607; 73100; 76000; 80048; C1713; J0690; J1100; J2405; J2704; J2795; J3010; J3490; J7030

== ENCOUNTER → 2022-03-23 08:34 | Outpatient (BNVA) | payer MEDICARE, SELFPAY | PROVIDERS: PCP Family Medicine; Visit Provider Nurse Practitioner Family | DX: Z98.890 Other specified postprocedural states (principal); S52.502A Unspecified fracture of the lower end of left radius, initial encounter for closed fracture; X58.XXXA Exposure to other specified factors, initial encounter | CPT/HCPCS: 73110 ==

== ENCOUNTER → 2022-04-27 10:18 | Outpatient (BNVA) | payer MEDICARE, SELFPAY | PROVIDERS: PCP Family Medicine; Visit Provider Nurse Practitioner Family | DX: Z98.890 Other specified postprocedural states (principal); X58.XXXA Exposure to other specified factors, initial encounter; S52.502A Unspecified fracture of the lower end of left radius, initial encounter for closed fracture | CPT/HCPCS: 73110; 99024 ==

== ENCOUNTER 2022-05-18 08:19 | Outpatient (CLI) | payer MEDICARE, SELFPAY ==
--- NOTE | 2022-05-18 08:38 | NM_ITS ---
WS: [id number] NUCLEAR MEDICINE BONE SCAN Radiopharmaceutical: 23.9 Tc-99m MDP mCi IV Injection site: LEFT wrist Postinjection imaging delay: 1 hr CLINICAL INFORMATION: BONE DENSITY/FATIGUE/RIGHT RENAL MASS COMPARISON: None. FINDINGS: Bone lesions: There are no osseous lesions suspicious for metastatic disease. Soft tissue contours: Normal. 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 Degenerative arthritis both wrists and both knees. Radiotracer uptake distal LEFT radius from prior plate and screw fixation distal radius. NM/NM bone scan whole body* [id number] IMPRESSION: No evidence of osseous metastatic disease.
== END 2022-05-18 08:20 | disposition home or self-care (01) ==
LOC: RAD 08:22
PROVIDERS: PCP Family Medicine; Visit Provider Family Medicine
DX: M85.88 Other specified disorders of bone density and structure, other site (principal); R53.83 Other fatigue
CPT/HCPCS: 78306; A9561

== ENCOUNTER → 2023-04-10 09:48 | Outpatient (BNVA) | payer MEDICARE, SELFPAY | PROVIDERS: PCP Family Medicine; Visit Provider Internal Medicine | DX: R00.2 Palpitations (principal) | CPT/HCPCS: 93225 ==

== ENCOUNTER 2023-11-05 20:00 | Outpatient (CLI) | payer MEDICARE, SELFPAY | END 2023-11-05 20:01 | disposition home or self-care (01) | LOC: SLEEP 11-06 05:15 | PROVIDERS: PCP Family Medicine; Visit Provider Family Medicine | DX: G47.33 Obstructive sleep apnea (adult) (pediatric) (principal); G47.10 Hypersomnia, unspecified; G47.61 Periodic limb movement disorder | CPT/HCPCS: 95810 ==

== ENCOUNTER 2023-11-29 10:49 | Outpatient (CLI) | payer MEDICARE, SELFPAY ==
--- NOTE | 2023-11-29 11:01 | USCV_ITS ---
Darshan Sullivan Age: 73 Gender: M : 1950 Exam Date: 11/29/2023 11:18 Ordering Phys: Lamin Lewis MD Technologist: [place]am [place] [facility] [place] Indication: AFIB BP: / HR: 101 Rhythm: Atrial fibrillation Technical Quality: Adequate MEASUREMENTS (Male / Female) Normal Values 2D ECHO LV Diastolic Diameter PLAX 4.3 cm 4.2 - 5.9 / 3.9 - 5.3 cm LV Systolic Diameter PLAX 3.2 cm LV Chamber Size 3.3 cm IVS Diastolic Thickness 1.2 cm 0.6 - 1.0 / 0.6 - 0.9 cm IVS Systolic Thickness 1.5 cm LVPW Diastolic Thickness 1.3 cm 0.6 - 1.0 / 0.6 - 0.9 cm LVPW Systolic Thickness 1.6 cm RV Chamber Size 2.9 cm LVOT Diameter 2.0 cm LV Ejection Fraction 2D Teich 57.9 % LV Ejection Fraction MOD 2C 48.0 % LV Ejection Fraction 2C AL 46.7 % LA Diameter 4.3 cm LA Width 2.8 cm LA Height 4.6 cm RA Width 2.9 cm RA Height 4.6 cm Aorta at Sinotubular Diameter 2.7 cm IVC Diameter 0.7 cm M-MODE Aortic Annulus Diameter 2.0 cm LA Ao Ratio MM 1.2 MV E Point Septal Separation 0.6 cm DOPPLER AV Peak Velocity 101.0 cm/s LVOT Peak Velocity 250.3 cm/s AV Area Cont Eq vti 9.7 cm squared AV Area Cont Eq pk 7.8 cm squared MV Area PHT 4.6 cm squared Mitral E to A Ratio 162.1 MV E' Velocity 62.0 cm/s Mitral E to MV E' Ratio 11.1 Mitral E to LV E' Lateral Ratio 11.5 Mitral E to LV E' Septal Ratio 10.9 TR Peak Velocity 200.2 cm/s TR Peak Gradient 16.0 mmHg TR Mean Velocity 160.4 cm/s TR Mean Gradient 10.8 mmHg TR Velocity Time Integral 48.8 cm TV Peak E Velocity 70.0 cm/s Right Atrial Pressure 3.0 mmHg Pulmonary Artery Systolic Pressu 19.0 mmHg RV Acceleration Time 0.1 s RV Ejection Time 0.3 s RV AcT/ET 0.4 FINDINGS Left Ventricle Left ventricle is normal in size. LV systolic function is normal with EF of 55-60%. No regional wall motion abnormalities are seen. Diastolic function is indeterminate because of atrial fibrillation. Right Ventricle Normal in size and function Right Atrium Normal in size Left Atrium Normal in size Mitral Valve Mild mitral annular calcification seen. Mild mitral regurgitation Aortic Valve Structurally normal aortic valve. No significant stenosis. Mild aortic regurgitation. Tricuspid Valve Mild tricuspid regurgitation. Pulmonary artery systolic pressure is normal. Pulmonic Valve Not well visualized Pericardium Normal Aorta Normal in size IVC Appears to be normal CONCLUSIONS LV systolic function is normal with EF of 55-60% Mild mitral regurgitation Mild aortic regurgitation Mild tricuspid regurgitation No comparison studies are available. Paul James MD (Electronically Signed) Final Date: 13 December 2023 10:04 S
== END 2023-11-29 10:50 | disposition home or self-care (01) ==
LOC: RAD 10:52
PROVIDERS: PCP Family Medicine; Visit Provider Family Medicine
DX: I48.91 Unspecified atrial fibrillation (principal)
CPT/HCPCS: 93306

== ENCOUNTER 2024-02-06 20:00 | Outpatient (CLI) | payer MEDICARE, SELFPAY | END 2024-02-06 20:01 | disposition home or self-care (01) | LOC: SLEEP 02-07 05:55 | PROVIDERS: PCP Family Medicine; Visit Provider Family Medicine | DX: G47.33 Obstructive sleep apnea (adult) (pediatric) (principal) | CPT/HCPCS: 95811 ==

== ENCOUNTER 2024-06-13 13:54 | Emergency (ER) | payer MEDICARE, SELFPAY ==
[2024-06-13 13:57] VITALS: BP 140/82; PULSE 87; RESP 16; TEMP 36.4; O2SAT 97
--- NOTE | 2024-06-13 15:03 | W.ED.ABDPA2 ---
Documented by User: ROSENDA Kent 06/13/24 15:23 HPI - Abdominal Pain General: Chief Complaint: Abdominal Pain Stated Complaint: no bm Time Seen by Provider: 06/13/24 14:48 Source: patient and family Mode of arrival: ambulatory Limitations: no limitations History of Present Illness: Patient is a nice 74-year-old male who presents to ED today along with his for evaluation of decreased ostomy output over the past 3 days. 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 states he has a history of a bowel obstruction back in 2020 and is concerned this could be the case today. Patient is not complaining of any abdominal pain. He did have multiple episodes of dry heaving on Sunday and she states he has belched a lot today. He has been eating and drinking normally over the past 48 hours. No fevers. MD elicited complaint: other (Decreased ostomy output) Onset (ago): day(s) Exacerbating factors: nothing Relieving factors: nothing Associated Symptoms: Denies chills, dysuria, fever(s), hematemesis and vomiting Related Data Home Medications Medication Instructions Recorded Confirmed amlodipine 10 mg tablet 10 mg PO DAILY 10/21/19 04/27/22 cetirizine 10 mg tablet 10 mg PO DAILY 10/21/19 04/27/22 hydrocodone 5 mg-acetaminophen 325 1 tab PO Q5H PRN Pain, Severe 10/21/19 04/27/22 mg tablet montelukast 10 mg tablet 10 mg PO DAILY 10/21/19 04/27/22 omeprazole 20 mg capsule,delayed 20 mg PO DAILY 10/21/19 04/27/22 release simvastatin 20 mg tablet 20 mg PO QPM 10/21/19 04/27/22 venlafaxine 75 mg tablet 75 mg PO DAILY 10/21/19 04/27/22 fluticasone furoate 27.5 1 spray intranasal ONCE 10/27/19 04/27/22 mcg/actuation nasal spray,suspension memantine 10 mg tablet (Namenda) 10 mg PO BID 03/08/22 04/27/22 furosemide 40 mg tablet 40 mg PO DAILY 03/09/22 04/27/22 potassium chloride 10 mEq 10 meq PO DAILY 03/09/22 04/27/22 tablet,extended release loratadine 10 mg tablet 10 mg PO PRN 03/10/22 04/27/22 Previous Rx's Medication Instructions Recorded metoprolol succinate 100 mg 100 mg PO DAILY #90 tabs 04/16/20 tablet,extended release 24 hr oxycodone-acetaminophen 5 mg-325 5 - 325 tab PO Q4H PRN Pain, 03/10/22 mg tablet Severe 7 days #30 tabs Splint - Left wrist #1 ea 03/23/22 Allergies Allergy/AdvReac Type Severity Reaction Status Date / Time Sulfa (Sulfonamide Allergy ALGY-Rash Verified 06/13/24 14:02 Antibiotics) Review of Systems Const: Denies: fever(s), chills, body aches, fatigue or malaise Card: Denies: chest pain Resp: Denies: dyspnea GI: Denies: abdominal pain, vomiting or hematemesis : Denies: flank pain or dysuria Musc: Denies: back pain PFSH ED PFSH: Medical History (Updated 06/13/24 @ 17:26 by ROSENDA Medrano) Hypertension Prostatic cancer Surgical History Hx of colostomy Hx of hemorrhoidectomy H/O hernia repair History of ureterostomy Family History Father , in his 50's-run over by a car heart disease No problems noted. Mother , in her 80's -colon cancer No problems noted. Social History Smoking and tobacco/nicotine status: never used tobacco/nicotine Alcohol intake: current Alcohol intake frequency: holidays/special occasions only Marital status: Current occupational status: retired Physical Exam Const: COMMON NORMALS: no acute distress, average body habitus, healthy appearing, alert and well nourished GENERAL APPEARANCE: cooperative OTHER: hx of dementia-at baseline per Resp: COMMON NORMALS: normal respiratory effort and clear to auscultation bilaterally AUSCULTATION: clear to auscultation bilaterally Cardio: COMMON NORMALS: regular rate and regular rhythm RATE: regular rate RHYTHM: regular rhythm GI: COMMON NORMALS: Normal to inspection, nondistended, normoactive bowel sounds present, Soft to palpation, non-tender and no masses INSPECTION: Yes normal to inspection PALPATION: Yes Soft to palpation OTHER: ostomy site/stoma appears clean and well cared for : COMMON NORMALS: Yes no CVA tenderness BLADDER/KIDNEY EXAM: Yes no CVA tenderness Back/Pelvis: COMMON NORMALS: no CVA tenderness Neuro: SENSORIUM/ORIENTATION: Yes alert Course Vital Signs: Vital signs: Vital Signs Temperature 97.6 F 06/13/24 13:57 Pulse Rate 95 06/13/24 16:10 Respiratory Rate 16 06/13/24 16:10 Blood Pressure 141/85 06/13/24 16:10 Pulse Oximetry 94 06/13/24 16:10 Oxygen Delivery Me thod Room Air 06/13/24 16:10 MDM - Abdominal Pain Lab Data 06/13/24 15:20 06/13/24 15:20 Labs/Radiology: Radiology Impressions Abdomen/Pelvis CT 06/13/24 15:08 IMPRESSION: 1. No evidence of acute abnormality in the abdomen or pelvis. 2. Partial colectomy with left lower quadrant colostomy. Small parastomal hernia. Laboratory Results WBC 9.10 10^3/uL (3.29-11.43) 06/13/24 15:20 RBC 4.89 10^6/uL (3.85-5.65) 06/13/24 15:20 Hgb 15.50 g/dL (11.27-16.99) 06/13/24 15:20 Hct 46.2 % (37-53) 06/13/24 15:20 MCV 94.5 fl (82-101) 06/13/24 15:20 MCH 31.7 pg (27-33) 06/13/24 15:20 MCHC 33.5 g/dL (30-55) 06/13/24 15:20 RDW 13.1 % (12.1-15.1) 06/13/24 15:20 Plt Count 268 10^3/cmm (157-399) 06/13/24 15:20 MPV 10.5 fL (7.4-10.4) H 06/13/24 15:20 Neut % (Auto) 68.4 % 06/13/24 15:20 Lymph % (Auto) 20.7 % 06/13/24 15:20 [place] % (Auto) 9.0 % 06/13/24 15:20 Eos % (Auto) 1.3 % 06/13/24 15:20 Baso % (Auto) 0.3 % 06/13/24 15:20 Neut # (Auto) 6.22 10^3/uL (1.8-7.7) 06/13/24 15:20 Lymph # (Auto) 1.9 10^3/uL (0.8-4.8) 06/13/24 15:20 [place] # (Auto) 0.8 10^3/uL (0.2-0.9) 06/13/24 15:20 Eos # (Auto) 0.1 10^3/uL (0.0-0.8) 06/13/24 15:20 Baso # (Auto) 0.0 10^3/uL (0.0-0.1) 06/13/24 15:20 Nucleated RBC % (auto) 0 % 06/13/24 15:20 Nucleated RBCs # 0.0 /100WBC 06/13/24 15:20 Sodium 140 mmol/L (136-145) 06/13/24 15:20 Potassium 3.8 mmol/L (3.5-5.1) 06/13/24 15:20 Chloride 104 mmol/L (98-107) 06/13/24 15:20 Carbon Dioxide 24 mmol/L (22-29) 06/13/24 15:20 Anion Gap 15.8 (5-19) 06/13/24 15:20 BUN 23 mg/dL (8-23) 06/13/24 15:20 Creatinine 1.5 mg/dL (0.7-1.2) H 06/13/24 15:20 GFR Calculation Not Reportable 06/13/24 15:20 Glucose 94 mg/dL (65-115) 06/13/24 15:20 Calculated Osmolality 293 mOsm/kg (285-295) 06/13/24 15:20 Lactic Acid 1.0 mmol/L (0.5-2.2) 06/13/24 15:20 Calcium 8.9 mg/dL (8.5-10.5) 06/13/24 15:20 Total Bilirubin 0.4 mg/dL (0.15-1.2) 06/13/24 15:20 AST 20 U/L (0-40) 06/13/24 15:20 ALT 20 U/L (0-41) 06/13/24 15:20 Alkaline Phosphatase 194 U/L (40-130) H 06/13/24 15:20 Total Protein 7.5 g/dL (6.6-8.7) 06/13/24 15:20 Albumin 4.2 g/dL (3.5-5.2) 06/13/24 15:20 Globulin 3.3 g/dL (1.3-4.6) 06/13/24 15:20 Lipase 54 U/L (13-60) 06/13/24 15:20 Urine Color Dark yellow (Yellow) A 06/13/24 16:49 Urine Appearance Clear (CLEAR) 06/13/24 16:49 Urine pH 5.0 (5-7) 06/13/24 16:49 Ur Specific [place] 1.017 (1.005-1.030) 06/13/24 16:49 Urine Protein Negative (Negative) 06/13/24 16:49 Urine Glucose (UA) Negative (Normal) 06/13/24 16:49 Urine Ketones Negative (Negative) 06/13/24 16:49 Urine Blood Negative (Negative) 06/13/24 16:49 Urine Nitrate Negative (Negative) 06/13/24 16:49 Urine Bilirubin Negative (Negative) 06/13/24 16:49 Urine Urobilinogen 1.0 mg/dL (Negative) 06/13/24 16:49 Ur Leukocyte Esterase Negative (Negative) 06/13/24 16:49 Amorphous Sediment Not Reportable 06/13/24 16:49 Discharge Plan Discharge Patient Disposition: Home Clinical Impression: Constipation Qualifiers: Constipation type: unspecified constipation type Qualified Code(s): K59.00 - Constipation, unspecified Condition: Stable Prescriptions: No Action fluticasone furoate 27.5 mcg/actuation spray,suspension 1 spray INTRANASAL ONCE memantine [Namenda] 10 mg tablet 10 mg PO BID (DME) Splint - Left wrist See Rx Instructions .Route .MEDSUPPLY Qty: 1 0RF Rx Instructions: As directed metoprolol succinate 100 mg tablet extended release 24 hr 100 mg PO DAILY Qty: 90 0RF venlafaxine 75 mg Tablet 75 mg PO DAILY cetirizine 10 mg Tablet 10 mg PO DAILY hydrocodone-acetaminophen 5-325 mg Tablet 1 tab PO Q5H PRN (Reason: Pain, Severe) amlodipine 10 mg Tablet 10 mg PO DAILY simvastatin 20 mg Tablet 20 mg PO QPM omeprazole 20 mg Capsule,Delayed Release(Dr/Ec) 20 mg PO DAILY montelukast 10 mg tablet 10 mg PO DAILY furosemide 40 mg Tablet 40 mg PO DAILY potassium chloride 10 mEq tablet extended release 10 meq PO DAILY loratadine 10 mg tablet 10 mg PO PRN oxycodone-acetaminophen 5-325 mg tablet 5 - 325 tab PO Q4H PRN (Reason: Pain, Severe) 7 Days Qty: 30 0RF Discharge Orders: Discharge ED (Routine); Ordered 06/13/24 Ordered By: Chris Herrera Referrals: Lamin Lewis MD [Primary Care Provider] - Discharge Diet: As Directed Discharge Activity: Increase activity as tolerated Patient Instructions: Colostomy Care (ED), Colectomy Diet (ED) Activity Restrictions/Additional Instructions: Your imaging and lab work today were unremarkable. Please follow-up with your primary care provider as discussed. Increase dietary fiber intake as well as increasing her fluids. Return with any new or concerning symptoms you may have. Sign Out Sign Out Data: Patient Sign Out occurred on 06/13/24 at 17:23. Patient's care was discussed, and care was transferred from ROSENDA Kent to ROSENDA Medrano. Coding Level of Care Code ED Radiological Metallurgist for Chg Fwd Documented by User: ROSENDA Medrano 06/13/24 17:30 HPI - Abdominal Pain General: Chief Complaint: Abdominal Pain Stated Complaint: no bm Time Seen by Provider: 06/13/24 14:48 Related Data Home Medications Medication Instructions Recorded Confirmed amlodipine 10 mg tablet 10 mg PO DAILY 10/21/19 04/27/22 cetirizine 10 mg tablet 10 mg PO DAILY 10/21/19 04/27/22 hydrocodone 5 mg-acetaminophen 325 1 tab PO Q5H PRN Pain, Severe 10/21/19 04/27/22 mg tablet montelukast 10 mg tablet 10 mg PO DAILY 10/21/19 04/27/22 omeprazole 20 mg capsule,delayed 20 mg PO DAILY 10/21/19 04/27/22 release simvastatin 20 mg tablet 20 mg PO QPM 10/21/19 04/27/22 venlafaxine 75 mg tablet 75 mg PO DAILY 10/21/19 04/27/22 fluticasone furoate 27.5 1 spray intranasal ONCE 10/27/19 04/27/22 mcg/actuation nasal spray,suspension memantine 10 mg tablet (Namenda) 10 mg PO BID 03/08/22 04/27/22 furosemide 40 mg tablet 40 mg PO DAILY 03/09/22 04/27/22 potassium chloride 10 mEq 10 meq PO DAILY 03/09/22 04/27/22 tablet,extended release loratadine 10 mg tablet 10 mg PO PRN 03/10/22 04/27/22 Previous Rx's Medication Instructions Recorded metoprolol succinate 100 mg 100 mg PO DAILY #90 tabs 04/16/20 tablet,extended release 24 hr oxycodone-acetaminophen 5 mg-325 5 - 325 tab PO Q4H PRN Pain, 03/10/22 mg tablet Severe 7 days #30 tabs Splint - Left wrist #1 ea 03/23/22 Allergies Allergy/AdvReac Type Severity Reaction Status Date / Time Sulfa (Sulfonamide Allergy ALGY-Rash Verified 06/13/24 14:02 Antibiotics) PFS ED PFSH: Medical History (Updated 06/13/24 @ 17:26 by ROSENDA Medrano) Hypertension Prostatic cancer Surgical History Hx of colostomy Hx of hemorrhoidectomy H/O hernia repair History of ureterostomy Family History Father , in his 50's-run over by a car heart disease No problems noted. Mother , in her 80's -colon cancer No problems noted. Social History Smoking and tobacco/nicotine status: never used tobacco/nicotine Alcohol intake: current Alcohol intake frequency: holidays/special occasions only Marital status: Current occupational status: retired Course Vital Signs: Vital signs: Vital Signs Temperature 97.6 F 06/13/24 13:57 Pulse Rate 95 06/13/24 16:10 Respiratory Rate 16 06/13/24 16:10 Blood Pressure 141/85 06/13/24 16:10 Pulse Oximetry 94 06/13/24 16:10 Oxygen Delivery Vt thod Room Air 06/13/24 16:10 MDM - Abdominal Pain Medical Decision Making Care of patient transferred to sc at shift change. Patient presented to the emergency department after having decreased bowel movements over the past few days, history of colectomy and report was that there was infrequent stools in his colostomy bag. He had no pain or other concerning symptoms to report. His lab work unremarkable. CT abdomen/pelvis did not show any signs of obstructive pattern or other concerning findings that would cause the patient to be constipated. His vitals were stable on arrival and have remained stable throughout his ED course. Upon recheck he is still not having any pain, and did inform him to increase his fiber and fluid intake in the case that this is simply functional/dietary cause of decreased stool in his colostomy. Otherwise he is told to follow-up with his primary doctor early next week for reevaluation. Return precautions given. Lab Data 06/13/24 15:20 06/13/24 15:20 Labs/Radiology: Radiology Impressions Abdomen/Pelvis CT 06/13/24 15:08 IMPRESSION: 1. No evidence of acute abnormality in the abdomen or pelvis. 2. Partial colectomy with left lower quadrant colostomy. Small parastomal hernia. Laboratory Results WBC 9.10 10^3/uL (3.29-11.43) 06/13/24 15:20 RBC 4.89 10^6/uL (3.85-5.65) 06/13/24 15:20 Hgb 15.50 g/dL (11.27-16.99) 06/13/24 15:20 Hct 46.2 % (37-53) 06/13/24 15:20 MCV 94.5 fl (82-101) 06/13/24 15:20 MCH 31.7 pg (27-33) 06/13/24 15:20 MCHC 33.5 g/dL (30-55) 06/13/24 15:20 RDW 13.1 % (12.1-15.1) 06/13/24 15:20 Plt Count 268 10^3/cmm (157-399) 06/13/24 15:20 MPV 10.5 fL (7.4-10.4) H 06/13/24 15:20 Neut % (Auto) 68.4 % 06/13/24 15:20 Lymph % (Auto) 20.7 % 06/13/24 15:20 [place] % (Auto) 9.0 % 06/13/24 15:20 Eos % (Auto) 1.3 % 06/13/24 15:20 Baso % (Auto) 0.3 % 06/13/24 15:20 Neut # (Auto) 6.22 10^3/uL (1.8-7.7) 06/13/24 15:20 Lymph # (Auto) 1.9 10^3/uL (0.8-4.8) 06/13/24 15:20 [place] # (Auto) 0.8 10^3/uL (0.2-0.9) 06/13/24 15:20 Eos # (Auto) 0.1 10^3/uL (0.0-0.8) 06/13/24 15:20 Baso # (Auto) 0.0 10^3/uL (0.0-0.1) 06/13/24 15:20 Nucleated RBC % (auto) 0 % 06/13/24 15:20 Nucleated RBCs # 0.0 /100WBC 06/13/24 15:20 Sodium 140 mmol/L (136-145) 06/13/24 15:20 Potassium 3.8 mmol/L (3.5-5.1) 06/13/24 15:20 Chloride 104 mmol/L (98-107) 06/13/24 15:20 Carbon Dioxide 24 mmol/L (22-29) 06/13/24 15:20 Anion Gap 15.8 (5-19) 06/13/24 15:20 BUN 23 mg/dL (8-23) 06/13/24 15:20 Creatinine 1.5 mg/dL (0.7-1.2) H 06/13/24 15:20 GFR Calculation Not Reportable 06/13/24 15:20 Glucose 94 mg/dL (65-115) 06/13/24 15:20 Calculated Osmolality 293 mOsm/kg (285-295) 06/13/24 15:20 Lactic Acid 1.0 mmol/L (0.5-2.2) 06/13/24 15:20 Calcium 8.9 mg/dL (8.5-10.5) 06/13/24 15:20 Total Bilirubin 0.4 mg/dL (0.15-1.2) 06/13/24 15:20 AST 20 U/L (0-40) 06/13/24 15:20 ALT 20 U/L (0-41) 06/13/24 15:20 Alkaline Phosphatase 194 U/L (40-130) H 06/13/24 15:20 Total Protein 7.5 g/dL (6.6-8.7) 06/13/24 15:20 Albumin 4.2 g/dL (3.5-5.2) 06/13/24 15:20 Globulin 3.3 g/dL (1.3-4.6) 06/13/24 15:20 Lipase 54 U/L (13-60) 06/13/24 15:20 Urine Color Dark yellow (Yellow) A 06/13/24 16:49 Urine Appearance Clear (CLEAR) 06/13/24 16:49 Urine pH 5.0 (5-7) 06/13/24 16:49 Ur Specific [place] 1.017 (1.005-1.030) 06/13/24 16:49 Urine Protein Negative (Negative) 06/13/24 16:49 Urine Glucose (UA) Negative (Normal) 06/13/24 16:49 Urine Ketones Negative (Negative) 06/13/24 16:49 Urine Blood Negative (Negative) 06/13/24 16:49 Urine Nitrate Negative (Negative) 06/13/24 16:49 Urine Bilirubin Negative (Negative) 06/13/24 16:49 Urine Urobilinogen 1.0 mg/dL (Negative) 06/13/24 16:49 Ur Leukocyte Esterase Negative (Negative) 06/13/24 16:49 Amorphous Sediment Not Reportable 06/13/24 16:49 All radiology interpretation(s) finalized by discharge Discharge Plan Discharge Patient Disposition: Home Clinical Impression: Constipation Qualifiers: Constipation type: unspecified constipation type Qualified Code(s): K59.00 - Constipation, unspecified Condition: Stable Prescriptions: No Action fluticasone furoate 27.5 mcg/actuation spray,suspension 1 spray INTRANASAL ONCE memantine [Namenda] 10 mg tablet 10 mg PO BID (DME) Splint - Left wrist See Rx Instructions .Route .MEDSUPPLY Qty: 1 0RF Rx Instructions: As directed metoprolol succinate 100 mg tablet extended release 24 hr 100 mg PO DAILY Qty: 90 0RF venlafaxine 75 mg Tablet 75 mg PO DAILY cetirizine 10 mg Tablet 10 mg PO DAILY hydrocodone-acetaminophen 5-325 mg Tablet 1 tab PO Q5H PRN (Reason: Pain, Severe) amlodipine 10 mg Tablet 10 mg PO DAILY simvastatin 20 mg Tablet 20 mg PO QPM omeprazole 20 mg Capsule,Delayed Release(Dr/Ec) 20 mg PO DAILY montelukast 10 mg tablet 10 mg PO DAILY furosemide 40 mg Tablet 40 mg PO DAILY potassium chloride 10 mEq tablet extended release 10 meq PO DAILY loratadine 10 mg tablet 10 mg PO PRN oxycodone-acetaminophen 5-325 mg tablet 5 - 325 tab PO Q4H PRN (Reason: Pain, Severe) 7 Days Qty: 30 0RF Discharge Orders: Discharge ED (Routine); Ordered 06/13/24 Ordered By: Chris Herrera Referrals: Lamin Lewis MD [Primary Care Provider] - Discharge Diet: As Directed Discharge Activity: Increase activity as tolerated Patient Instructions: Colostomy Care (ED), Colectomy Diet (ED) Activity Restrictions/Additional Instructions: Your imaging and lab work today were unremarkable. Please follow-up with your primary care provider as discussed. Increase dietary fiber intake as well as increasing her fluids. Return with any new or concerning symptoms you may have. Sign Out Sign Out Data: Patient Sign Out occurred on 06/13/24 at 17:23. Patient's care was discussed, and care was transferred from ROSENDA Kent to ROSENDA Medrano. Coding Level of Care Code ED Radiological Metallurgist for Daniela Pichardo
--- NOTE | 2024-06-13 15:08 | CTR_ITS ---
PROCEDURE INFORMATION: Exam: CT Abdomen And Pelvis With Contrast Exam date and time: 06/13/2024 4:28 PM Age: 74 years old Clinical indication: Abdominal tenderness; Prior surgery; Surgery date: 6+ months; Surgery type: Hernia, colostomy; Patient HX: Prostate CA; Additional info: No output in ostomy in 3 days, belching TECHNIQUE: Imaging protocol: Computed tomography of the abdomen and pelvis with contrast. Radiation optimization: All CT scans at this facility use at least one of these dose optimization techniques: automated exposure control; mA and/or kV adjustment per patient size (includes targeted exams where dose is matched to clinical indication); or iterative reconstruction. Contrast material: OMNIPAQUE 350; Contrast volume: 100 ml; Contrast route: INTRAVENOUS (IV); COMPARISON: CR XR abdomen min 2V [id number] 06/11/2024 4:55 PM RADIATION DOSE METRICS: Total DLP (mGy-cm): 596.79 FINDINGS: Lungs: Subsegmental bibasilar atelectasis. The visualized lung bases are otherwise grossly clear. Diaphragm: No evidence of diaphragmatic defect. Liver: Hepatic steatosis. No evidence of focal hepatic lesion. Gallbladder and biliary ducts: Unremarkable. No intra-hepatic or extra-hepatic biliary dilatation. Pancreas: Unremarkable. Spleen: Unremarkable. Adrenal glands: Unremarkable. Kidneys and ureters: There are simple appearing renal cysts for which dedicated imaging follow-up is not required. Posterior right upper pole scarring versus partial nephrectomy. Correlation with procedural history is recommended. No hydronephrosis or ureteral stone. Stomach and bowel: Postsurgical changes of the distal colon status post partial colectomy with left lower quadrant colostomy. No bowel obstruction. No evidence of inflammatory changes. Small 1.5 cm parastomal hernia with protrusion of a short segment of small bowel into the defect (image 59 of series 3). Appendix: Normal appendix. Intraperitoneal space: No evidence of free air or fluid collection. Vasculature: Extensive aortobiiliac atherosclerosis without aneurysmal dilatation or dissection. The celiac trunk, SMA and TALHA are grossly patent. Moderate narrowing of the origin of the celiac trunk secondary to densely calcified atherosclerotic plaque. Consider follow-up outpatient vascular evaluation. No evidence of IVC thrombus. The portal vein, SMV and splenic veins are grossly patent. Lymph nodes: No adenopathy. Urinary bladder: Grossly unremarkable. Reproductive: Radiotherapy beads noted in place. Bones/joints: No evidence of acute fracture or aggressive osseous lesion. Severe multilevel facet arthrosis of the lumbar spine. Soft tissues: No evidence of fluid collection or hematoma in the superficial soft tissues. CT/CT abdomen pelvis w con* [id number] IMPRESSION: 1. No evidence of acute abnormality in the abdomen or pelvis. 2. Partial colectomy with left lower quadrant colostomy. Small parastomal hernia.
[2024-06-13 15:32] LABS: Basophils % 0.3 %; Eosinophils # 0.1 10^3/uL (0.0-0.8); Eosinophils % 1.3 %; Hematocrit 46.2 % (37-53); Lymphocytes # 1.9 10^3/uL (0.8-4.8); Lymphocytes % 20.7 %; Mean Corpuscular HGB Conc 33.5 g/dL (30-55); Mean Corpuscular Hemoglobin 31.7 pg (27-33); Mean Corpuscular Volume 94.5 fl (82-101); Mean Platelet Volume 10.5 fL (7.4-10.4); Monocytes # 0.8 10^3/uL (0.2-0.9); Neutrophils # 6.22 10^3/uL (1.8-7.7); Neutrophils % 68.4 %; Nucleated Red Blood Cells % 0 %; Platelet Count 268 10^3/cmm (157-399); Red Blood Count 4.89 10^6/uL (3.85-5.65); Red Cell Distribution Width 13.1 % (12.1-15.1)
[2024-06-13 16:00] LABS: Alanine Aminotransferase 20 U/L (0-41); Albumin Level 4.2 g/dL (3.5-5.2); Alkaline Phosphatase 194 U/L (40-130); Anion Gap 15.8 (5-19); Aspartate Amino Transferase 20 U/L (0-40); Blood Urea Nitrogen 23 mg/dL (8-23); Calcium 8.9 mg/dL (8.5-10.5); Carbon Dioxide 24 mmol/L (22-29); Chloride 104 mmol/L (98-107); Creatinine Clr Calc Pharmacy 49.2674; Globulin 3.3 g/dL (1.3-4.6); Glucose 94 mg/dL (65-115); Lipase 54 U/L (13-60); Osmolality Calculated 293 mOsm/kg (285-295); Potassium 3.8 mmol/L (3.5-5.1); Sodium 140 mmol/L (136-145); Total Bilirubin 0.4 mg/dL (0.15-1.2); Total Protein 7.5 g/dL (6.6-8.7)
[2024-06-13 16:10] VITALS: BP 141/85; PULSE 95; RESP 16; O2SAT 94
[2024-06-13] MEDS: iohexol 350 mg/mL 500 mL Btl (per mL) IV (16:33)
[2024-06-13 17:01] LABS: Charge for UA Resulting for Rev
[2024-06-13 17:09] LABS: Bilirubin Urine Negative (Negative); Blood Urine Negative (Negative); Glucose Urine UA Negative (Normal); Ketones Urine Negative (Negative); Leukocyte Esterase Urine Negative (Negative); Nitrate Urine Negative (Negative); Protein Urine Negative (Negative); Specific Gravity, Urine 1.017 (1.005-1.030); Urine Appearance Clear (CLEAR); Urine Color Dark Yellow (Yellow)
[2024-06-13 17:13] LABS: Bacteria Urine None Seen /hpf; Hyaline Casts Urine 11.57 /lpf; RBC Urine 0-2 /hpf (0-2); Squamous Epithelial Cell Urine 0-5 /hpf (0-5); WBC Urine 0-5 /hpf (0-5)
[2024-06-13 17:55] VITALS: BP 126/81; PULSE 93; RESP 14; TEMP 36.4; O2SAT 96
== END 2024-06-13 17:54 | disposition home or self-care (01) ==
PROVIDERS: Physician Assistant; Emergency Provider Physician Assistant; PCP Family Medicine
DX: K59.00 Constipation, unspecified (principal); F03.90 Unspecified dementia, unspecified severity, without behavioral disturbance, psychotic disturbance, mood disturbance, and anxiety; I10 Essential (primary) hypertension; Z85.46 Personal history of malignant neoplasm of prostate; Z92.3 Personal history of irradiation
CPT/HCPCS: 36415; 74177; 80053; 81003; 81015; 83605; 83690; 85025; 99285; Q9967

== ENCOUNTER 2025-07-04 17:10 | Emergency (ER) | payer MEDICARE, SELFPAY ==
--- OUTSIDE RECORDS SUMMARY | 2024-02-20 04:00 | XMS_ITS ---
Author Organization [facility] Address [address] [place] [address] Care Team Providers Care Oil Speculator Name Role Phone Lamin Lewis Primary Care Provider Rekha Smith Unavailable [phone] Sal Izquierdo Unavailable [phone] REASON FOR VISIT [facility] Encounters Encounter Location Date Provider Diagnosis [facility] [address] [place] [address], [place] [address] 02/20/2024 Sal Izquierdo Plan Of Treatment Next Appt Details Provider Name:Sal Izquierdo , 07/22/2025 01:15:00 PM, [address] [place] [address], [place], [address], Progress Notes * Darshan MCKENZIE WDOB:1949 (75 yo M)Acc No.[id number]:02/20/2024 [place] Patient: Darshan Restrepo W Provider: Jeanna Izquierdo MD :1950 A ge:73 Y S ex:Male Date:02/20/2024 Address:[address] [place], [place] [id number] Pcp:Lamin Lewis Subjective: * Chief Complaints: * L HC Billing Information: * Procedure Codes: * Electronic signature of Harrison Izquierdo MD on 07/04/2025 at 05:21 PM CDT Sign off status: Pending * Provider: Jeanna Izquierdo MD Date: 02/20/2024 Generated for Sammie donis/Priya/eTransmitting on: 0 07/04/2025 05:21 PM CDT
--- OUTSIDE RECORDS SUMMARY | 2024-10-06 05:15 | XMS_ITS ---
Author Organization [facility] Address [address] [place] [address] Care Team Providers Care Lime Kiln Tender Name Role Phone Lamin Lewis Primary Care Provider Rekha Smith Unavailable [phone] Sal Izquierdo Unavailable [phone] REASON FOR VISIT 6 MO OV PER [facility] 03/25/24 TW Encounters Encounter Location Date Provider Diagnosis [facility] [address] [place] [id number] 10/06/2024 Sal Izquierdo Plan Of Treatment Next Appt Details Provider Name:Sal Izquierdo , 07/22/2025 01:15:00 PM, [address] [place] [address], [id number], Progress Notes * Darshan MCKENZIE WDOB:1949 (75 yo M)Acc No.[id number]:10/06/2024 Progress Notes Patient: Darshan Restrepo Provider: Jeanna Izquierdo MD :1950 A ge:74 Y S ex:Male Date:10/06/2024 Address:[address] [place] [id number] Pcp:Lamin Lewis Subjective: * Chief Complaints: * 6 MO OV PER NATHEN 03/25/24 TW Billing Information: * Procedure Codes: Care Plan Details* * Electronic signature of Harrison Izquierdo MD on 07/04/2025 at 05:22 PM CDT Sign off status: Pending * Provider: Jeanna Izquierdo MD Date: 1 12/07/2023 Generated for Sammie donis/Priya/Olaf on: 0 07/04/2025 05:22 PM CDT
[2025-07-04 17:16] VITALS: BP 141/87; PULSE 118; RESP 16; TEMP 36.6; O2SAT 95
--- OUTSIDE RECORDS SUMMARY | 2025-07-04 17:21 | XMS_ITS | Encounter Summary ---
Author Organization [facility] Address [address] [place] [address] Care Team Providers Care Vascular Technologist Sonographer Name Role Phone Lamin Lewis MD Primary Care Provider Encounter Details Date Type Department Care Team (Latest Contact Info) Description 01/08/1998 Outpatient Historical [facility] [address] [place] [address] Lalita Quintanilla [address] [facility], [address] [place] [address] Routine medical exam (Primary Dx); Acute peptic ulcer, unspecified site, with perforation and obstruction (CMS/HCC); Need for prophylactic vaccination with tetanus toxoid alone Social History Tobacco Use Types Packs/Day Years Used Date Smoking Tobacco: Never Assessed Sex and Gender Information Value Date Recorded Sex Assigned at Not on file Legal Sex Male 3:43 AM 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 PSYCHIATRIST Gender Identity Not on file Sexual Orientation Not on file documented as of this encounter Plan of Treatment Not on file documented as of this encounter Visit Diagnoses Diagnosis Routine medical exam- Primary Routine general medical examination at a health care facility Acute peptic ulcer, unspecified site, with perforation and obstruction (CMS/HCC) Acute peptic ulcer, unspecified site, with perforation and obstruction Need for prophylactic vaccination with tetanus toxoid alone documented in this encounter Care Teams Vascular Technologist Sonographer Relationship Specialty Start Date End Date Lamin Lewis MD [address] [address] PCP - General 01/23/03 documented as of this encounter
--- OUTSIDE RECORDS SUMMARY | 2025-07-04 17:21 | XMS_ITS | Encounter Summary ---
Author Organization [facility] Address [address] [place] [address] Care Team Providers Care Door Repairer Bus Name Role Phone Lamin Lewis MD Primary Care Provider [phone] Encounter Details Date Type Department Care Team (Latest Contact Info) Description 01/23/2003 Outpatient Historical [facility] Jacob Oscar MD [address] [address] DIVERTICULOSIS OF COLON W/O BLEED (Primary Dx) Social History Tobacco Use Types Packs/Day Years Used Date Smoking Tobacco: Never Assessed Sex and Gender Information Value Date Recorded Sex Assigned at Not on file Legal Sex Male 3:43 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
--- OUTSIDE RECORDS SUMMARY | 2025-07-04 17:21 | XMS_ITS | Encounter Summary ---
Author Organization [facility] Address [address] [place] [address] Care Team Providers Care Glove Printer Name Role Phone Lamin Lewis MD Primary Care Provider [phone] Encounter Details Date Type Department Care Team (Latest Contact Info) Description 04/29/2003 Outpatient Historical [facility] Pre[facility] [address] 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
--- OUTSIDE RECORDS SUMMARY | 2025-07-04 17:21 | XMS_ITS | Encounter Summary ---
Author Organization [facility] Address [address] [place] [address] Care Team Providers Care Regional Trainer Name Role Phone Lamin Lewis MD Primary Care Provider [phone] Encounter Details Date Type Department Care Team (Latest Contact Info) Description 04/22/2003 Outpatient Historical [facility] Endoscopy [place] [address] [place] [address] Vladimir Carrasco MD [address] [place] [id number] RECTAL & ANAL ULCER (Primary Dx) Social History Tobacco Use Types Packs/Day Years Used Date Smoking Tobacco: Never Assessed Sex and Gender Information Value Date Recorded Sex Assigned at Not on file 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
--- OUTSIDE RECORDS SUMMARY | 2025-07-04 17:21 | XMS_ITS | Encounter Summary ---
Author Organization [facility] Address [address] [place] [address] Care Team Providers Care Upsetter Setter Up Name Role Phone Lamin Lewis MD Primary Care Provider [phone] Encounter Details Date Type Department Care Team (Latest Contact Info) Description 04/29/2003 Outpatient Historical [facility] General and Trauma Surgery-[address] [place] [address] Macario Henderson MD [address] [place] [address] [address] [place] [address] INCONTINENCE OF FECES (Primary Dx); ANAL OR RECTAL PAIN; Rectal/anal ulcer Social History Tobacco Use Types Packs/Day Years Used Date Smoking Tobacco: Never Assessed Sex and Gender Information Value Date Recorded Sex Assigned at Not on file 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
--- OUTSIDE RECORDS SUMMARY | 2025-07-04 17:21 | XMS_ITS | Encounter Summary ---
Author Organization [facility] Address [address] [place] [address] Care Team Providers Care Entry Tech Name Role Phone Lamin Lewis MD Primary Care Provider [phone] Encounter Details Date Type Department Care Team (Latest Contact Info) Description 10/06/1998 Outpatient Historical [facility] Urology- [address] Entrance B, 3rd [place] [address] Elevated PSA (Primary Dx); Hyperplasia of prostate Social History Tobacco Use Types Packs/Day Years Used Date Smoking Tobacco: Never Assessed Sex and Gender Information Value Date Recorded Sex Assigned at Not on file 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
--- OUTSIDE RECORDS SUMMARY | 2025-07-04 17:21 | XMS_ITS | Encounter Summary ---
Author Organization [facility] Address [address] [place] [address] Care Team Providers Care Telecom Field Technician Name Role Phone Lamin Lewis MD Primary Care Provider [phone] Encounter Details Date Type Department Care Team (Latest Contact Info) Description 04/22/2003 Outpatient Historical [facility]ology- [place] [address] [facility] [address] [place] [address] Vladimir Carrasco MD [address] [place] [address] Rectal/anal ulcer (Primary Dx) Social History Tobacco Use Types Packs/Day Years Used Date Smoking Tobacco: Never Assessed Sex and Gender Information Value Date Recorded Sex Assigned at Not on file 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
--- OUTSIDE RECORDS SUMMARY | 2025-07-04 17:21 | XMS_ITS | Encounter Summary ---
Author Organization [facility] Address [address] [place] [address] Care Team Providers Care Chemical Dependency Therapist Name Role Phone Lamin Lewis MD Primary Care Provider [phone] Encounter Details Date Type Department Care Team (Latest Contact Info) Description 07/16/1998 Outpatient Historical [facility] Urology- [address] Entr[address] B, 3rd [place] [address] Urinary frequency (Primary Dx) Social History Tobacco Use Types Packs/Day Years Used Date Smoking Tobacco: Never Assessed Sex and Gender Information Value Date Recorded Sex Assigned at Not on file 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
--- OUTSIDE RECORDS SUMMARY | 2025-07-04 17:22 | XMS_ITS | Encounter Summary ---
Author Organization [facility] Address [address] [place] [address] Care Team Providers Care Sales Representative Graphic Art Name Role Phone Lamin Lewis MD Primary Care Provider [phone] Encounter Details Date Type Department Care Team (Late st Contact Info) Description 05/05/2003 Inpatient Historical [facility] Macario Henderson MD [address] [facility] [address] [place] [address] RECTAL & ANAL ULCER (Primary Dx) Social History Tobacco Use Types Packs/Day Years Used Date Smoking Tobacco: Never Assessed Sex and Gender Information Value Date Recorded Sex Assigned at Not on file 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
--- OUTSIDE RECORDS SUMMARY | 2025-07-04 17:22 | XMS_ITS | Encounter Summary ---
Author Organization [facility] Address [address] [place] [address] Care Team Providers Care Black Leather Buffer Name Role Phone Lamin Lewis MD Primary Care Provider [phone] Reason for Visit * Reason Comments Follow Up [facility] patient Encounter Details Date Type Department Care Team (Late st Contact Info) Description 06/26/2025 Chart Note [facility] [address] [place] [address] Adithya Aviles, RADHA Follow Up ([facility] patient) Social History Tobacco Use Types Packs/Day Years Used Date Smoking Tobacco: Former Passive Smoke Exposure: Past Smokeless Tobacco: Former Comments:Quit smoking: stopp ed chewing Alcohol Use Standard Drinks/Week Comments No 0 (1 standard drink = 0.6 oz pur e alcohol) Feeling Safe Answer Date Recorded Are you in a relationship wi th someone who hurts you emotionally and/or physically? No 12/02/2024 Sex and Gender Information Value Date Recorded Sex Assigned at Not on file Legal Sex Male 4:50 PM COSMETICIAN Gender Identity Not on file Sexual Orientation Not on file documented as of this encounter Progress Notes * Loan Limon CMA - 06/26/2025 10:40 AM CDT Thank you so much Adithya! I will get the results faxed to his provider. * Adithya Aviles CNA - 06/26/2025 8:52 AM CDT Randy Cates, Just scanned . Not sure how you proceed with [facility] patients. Thank you! Adithya Aviles documented in this encounter Plan of Treatment Upcoming Encounters Date Type Department Care Team (Late st Contact Info) Description 08/13/2025 12:45 PM CDT Office Visit [facility] - [place] [address] [facility] [address] [place] [address] Kenyatta Damon MD [address] [facility] [address] [place] [address] documented as of this encounter Visit Diagnoses Not on filedocumented in this encounter Care Teams Black Leather Buffer Relationship Specialty Start Date End Date Lamin Lewis MD [address] [phone] PCP - General 01/23/03 documented as of this encounter
--- OUTSIDE RECORDS SUMMARY | 2025-07-04 17:22 | XMS_ITS | Clinical Summary ---
Author Organization [facility] Address [address] [place] [address] Care Team Providers Care Outside Event Sales Specialist Name Role Phone Lamin Lewis MD Primary Care Provider [phone] Allergies Active Allergy Reactions Criticality Noted Date Comments Diphenhydramine Hcl Rash Low 08/30/2009 Patient reports he has taken this and has done fine Pseudoephedrine Hcl Rash Low 08/30/2009 Sulfa (Sulfonamide Antibiotics) Rash Low 08/30/2009 Medications venlafaxine (EFFEXOR) 75 mg Oral Tab Take 75 mg by mouth daily storekeeper helper. Active amlodipine (NORVASC) 10 mg Oral Tab Take 10 mg by mouth daily. Active simvastatin (ZOCOR) 40 mg Oral Tab Take 40 mg by mouth Daily LATE. Active flunisolide (NASALIDE) 25 mcg (0.025 %) Energy, Non-Aerosol Administer 2 Sprays in each nostril 2 times daily. Active metoprolol succinate (TOPROL XL) 100 mg Extended Release 24 hour tablet Take 100 mg by mouth daily. Active omeprazole (PriLOSEC) 20 mg Capsule, Delayed Release(E.C.) Take 20 mg by mouth daily. Active oxyCODONE-aceta minophen (PERCOCET) 5-325 mg tablet Take 1 Tablet by mouth every 4 hours as needed for Pain, Moderate. Active fexofenadine (CHELSEY) 180 mg tablet Take 180 mg by mouth daily. Active Active Problems Problem Noted Date Diagnosed Date History of renal cell carcinoma 05/11/2020 SUKUMAR (acute kidney injury) 02/10/2020 Right renal mass 11/17/2019 History of prostate cancer 11/17/2019 Male stress incontinence 11/17/2019 SBO (small bowel obstruction) 08/31/2009 Right corneal abrasion Resolved Problems Problem Noted Date Diagnosed Date Resolved Date Clear cell renal cell carcinoma, right 12/25/2019 03/02/2021 Cancer Staging:Clinical: Unsigned Pathologic stage from 12/25/2019:Stage Unknown(pT1b, pNX) - Signed by Thien Suresh MD on 12/25/2019 Immunizations Immunization Administration Dates Next Due Influenza Seasonal Unspecified Formulation IM Social History Tobacco Use Types Packs/Day Years Used Date Smoking Tobacco: Former Smokeless Tobacco: Former Chew Tobacco Cessation:Counseling Given: No Comments:stopped chewing Alcohol Use Standard Drinks/Week Comments No 0 (1 standard drink = 0.6 oz pur e alcohol) Sex and Gender Information Value Date Recorded Sex Assigned at Not on file 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 Gender Identity Not on file Sexual Orientation Not on file Last Filed Vital Signs Vital Sign Reading Time Taken Comments Blood Pressure 150/72 12/29/2020 9:41 AM CHOCOLATE FINISHER Pulse 72 12/29/2020 9:41 AM CHOCOLATE FINISHER Temperature 36.7 C (98.1 F) 12/25/2019 12:36 PM CHOCOLATE FINISHER Respiratory Rate 16 12/25/2019 12:36 PM CHOCOLATE FINISHER Oxygen Saturation 97% 12/25/2019 12:36 PM CHOCOLATE FINISHER Inhaled Oxygen Concentration - - Weight 89.8 kg (198 lb) 03/02/2021 1:04 PM CDT Height 185.4 cm (6' 1 ) 03/02/2021 1:04 PM CDT Body Mass Index 26.12 03/02/2021 1:04 PM CDT Plan of Treatment Health Maintenance Due Date Last Done Comments DTAP/TDAP/TD VACCINES (1 - Tdap) 1967 PNEUMOCOCCAL VACCINE 50+ YEARS (1 of 1 - PCV) 05/01/19 98 ZOSTER VACCINE (1 of 2) 1998 RSV VACCINE (60+ or ) (1 - 1-dose 75+ series) 2023 INFLUENZA VACCINE (#1) 2025 09/03/2019 Colorectal Cancer Screening Discontinued Flex Sig/CT Colonography Q 5 years Discontinued 2002 COLORECTAL SCREENING Discontinued FIT-DNA Q 3 years Discontinued FIT/FOBT Q 1 year Discontinued Medical Devices Implanted Type Area Oracle Engineer Device Identifier Shelf Expiration Date Model / Serial / Lot Clip Hemolok Lrg [id number] - Csc - [id number] Implanted:12/23 by Ethan Mathis MD at [facility] (Quantity not on file) Clip Right: Kidney TELEFLEX- WECK CLOSURE SYS [id number] 04/29/2024 [id number] / / [id number] Clip Hemolok Lrg [id number] - Csc - [id number] Implanted:12/23 by Ethan Mathis MD at [facility] (Quantity not on file) Clip Right: Kidney TELEFLEX- WECK CLOSURE SYS [id number] 04/29/2024 [id number] / / [id number] Clip Hemolok Lrg [id number] - Csc - [id number] Implanted:12/23 by Ethan Mathis MD at [facility] (Quantity not on file) Clip Right: Kidney TELEFLEX- WECK CLOSURE SYS [id number] 04/29/2024 [id number] / / [id number] Clip Hemolok Ml [id number] - Csc - [id number] Implanted:12/23 by Ethan Mathis MD at [facility] (Quantity not on file) Clip Right: Kidney TELEFLEX- WECK CLOSURE SYS [id number] 12/25/2022 [id number] / / [id number] Clip Polymer Vesolock Lrg [id number] - [id number] Implanted:Qty: 1 on 12/24/2019 by Ethan Mathis MD at [facility] Clip Right: Kidney TELEFLEX- WECK CLOSURE SYS 02/19/2022 [id number] / / [id number] Clip Polymer Vesolock Lrg [id number] - [id number] Implanted:Qty: 1 on 12/24/2019 by Ethan Mathis MD at [facility] Clip Right: Kidney TELEFLEX- WECK CLOSURE SYS 02/19/2022 [id number] / / [id number] Sealant Fibrin Evicel 2ml 3902 - [id number] Implanted:12/23 by Ethan Mathis MD at [facility] (Quantity not on file) Other Right: Kidney [employer] [id number] 05/20/2021 [id number] / / [id number] Insurance [facility] Medicare Part D Advance Directives For more information, please contact: [phone] * Full Code (Latest Code Status on File) Date Activated Date Inactivated Comments 12/24/2019 12:47 PM 12/25/2019 4:49 PM * Full Code Date Activated Date Inactivated Comments 12/24/2019 6:56 AM 12/24/2019 12:47 PM * Full Code Date Activated Date Inactivated Comments 08/31/2009 2:57 AM 09/03/2009 3:52 PM Care Teams Outside Event Sales Specialist Relationship Specialty Start Date End Date Lamin Lewis MD [address] [place] [address] PCP - General 01/23/03
--- OUTSIDE RECORDS SUMMARY | 2025-07-04 17:22 | XMS_ITS | Encounter Summary ---
Author Organization [facility] Address [address] [place] [address] Care Team Providers Care Heavy Threader Name Role Phone Lamin Lewis MD Primary Care Provider [phone] Encounter Details Date Type Department Care Team (Latest Contact Info) Description 07/27/2003 Outpatient Historical [facility] Specialty Nursing Services [address] 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
--- OUTSIDE RECORDS SUMMARY | 2025-07-04 17:22 | XMS_ITS | Encounter Summary ---
Author Organization [facility] Address [address] [place] [address] Care Team Providers Care Pumping Station Supervisor Name Role Phone Lamin Lewis MD Primary Care Provider [phone] Encounter Details Date Type Department Care Team (Latest Contact Info) Description 07/08/2003 Outpatient Historical [facility] Pain Management Procedures [address] 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
--- OUTSIDE RECORDS SUMMARY | 2025-07-04 17:22 | XMS_ITS | Clinical Summary ---
Author Organization [facility] tone Address [address] [place] [address] Care Team Providers Care Creative Strategist Name Role Phone Lamin Lewis MD Primary Care Provider [phone] Allergies Active Allergy Reactions Criticality Noted Date Comments Diphenhydramine Hcl Rash Low 08/30/2009 Patient reports he has taken this and has done fine Pseudoephedrine Hcl Rash Low 08/30/2009 Sulfa (Sulfonamide Antibiotics) Rash Low 08/30/2009 Medications metoprolol succinate (TOPROL XL) 100 mg Extended Release 24 hour tablet Take 100 mg by mouth daily. 11/17/19 20 Active oxyCODONE-juju taminophen (PERCOCET) 5-325 mg tablet Take 1 Tablet by mouth every 4 hours as needed for Pain, Moderate. 11/17/19 20 Active fexofenadine (CHELSEY) 180 mg tablet Take 180 mg by mouth daily. 12/15/19 20 Active omeprazole (PriLOSEC) 20 mg Capsule, Delayed Release(E.C.) Take 20 mg by mouth daily. 11/17/19 20 Active flunisolide (NASALIDE) 25 mcg (0.025 %) Dyke, Non-Aerosol Administer 2 Sprays in each nostril 2 times daily. 11/17/19 20 Active venlafaxine (EFFEXOR) 75 mg tablet Take 75 mg by mouth daily in the morning. Active montelukast (SINGULAIR) 10 mg tablet Take 10 mg by mouth daily. 08/24/20 Active amLODIPine (NORVASC) 10 mg tablet Take 10 mg by mouth daily. Active potassium chloride (KLOR-CON) 10 mEq Extended Release tablet 08/01/20 Active furosemide (LASIX) 40 mg tablet Take 40 mg by mouth daily. Active simvastatin (ZOCOR) 40 mg tablet Take 40 mg by mouth late in the day. Active predniSONE (DELTASONE) 5 mg tablet TAKE 4 TABLETS BY MOUTH ONCE DAILY FOR 3 DAYS THEN 3 ONCE DAILY FOR 3 DAYS THEN 2 ONCE DAILY FOR 3 DAYS THEN 1 ONCE DAILY FOR 3 DAYS 02/19/20 Active doxycycline hyclate (VIBRAMYCIN) 100 mg capsule Take 100 mg by mouth 2 times daily. 02/19/20 23 Active apixaban (Eliquis) 5 mg tablet Take 5 mg by mouth 2 times daily. Active venlafaxine (EFFEXOR XR) 150 mg Extended Release 24 hour capsule Take 150 mg by mouth daily. 04/18/20 24 Active ondansetron (ZOFRAN ODT) 4 mg Tablet, Rapid Dissolve Place 4 mg under tongue every 8 hours as needed. 06/11/20 24 Active lactulose (ENULOSE) 10 gram/15 mL oral solution Take 10 Grams by mouth see administration instructions. 06/30/20 24 Active loratadine (CLARITIN) 10 mg tablet Take 1 Tablet by mouth daily. Active nitroglycerin (Nitro-Bid) 2 % Ointment Apply 0.5 Inches to affected area 3 times daily as needed (Rectal Pain). Active ALPRAZolam (XANAX) 0.25 mg tablet Take 1 Tablet by mouth 2 times daily. 11/28/19 25 Active memantine (NAMENDA) 10 mg Tablet TAKE 1 TABLET BY MOUTH TWICE A DAY 180 Tablet 3 02/11/20 25 Active risperiDONE (RisperDAL) 0.5 mg tablet TAKE 1 TABLET BY MOUTH TWICE A DAY 180 Tablet 1 06/23/20 25 Active risperiDONE (RisperDAL) 0.5 mg tablet TAKE 1 TABLET BY MOUTH 2 TIMES DAILY. 180 Tablet 1 12/26/19 25 2024 Discontinued Active Problems Problem Noted Date Diagnosed Date History of renal cell carcinoma 05/11/2020 SUKUMAR (acute kidney injury) 02/10/2020 History of prostate cancer 11/17/2019 Right renal mass 11/17/2019 Male stress incontinence 11/17/2019 SBO (small bowel obstruction) 08/31/2009 Right corneal abrasion Resolved Problems Problem Noted Date Diagnosed Date Resolved Date Clear cell renal cell carcinoma, right 12/25/2019 03/02/2021 Cancer Staging:Clinical: Unsigned Pathologic stage from 12/25/2019:Stage Unknown(pT1b, pNX) - Signed by Thien Suresh MD on 12/25/2019 Encounters Date Type Department Care Team Description 06/26/2025 Chart Note [facility] [place] [address] Adithya Aviles CNA Follow Up ([facility] patient) 06/23/2025 External Device Data STL ABSTRACTION Provider, Abstract 06/22/2025 Refill [facility] - [address] [phone] Kenyatta Damon MD 06/12/2025 8:00 PM CDT Procedure visit [facility] [place] [phone] Lamont Maldonado MD MARY (obstructive sleep apnea) 06/09/2025 External Device Data STL ABSTRACTION Provider, Abstract 06/09/2025 External Device Data STL ABSTRACTION Provider, Abstract 05/29/2025 Chart Note [facility] [address] [place] [phone] Loan Limon CMA Procedure (Directives for [facility] FTSS) 05/28/2025 Chart Note [facility] [address] [place] [phone] Lamont Maldonado MD [facility] Fine Tune Sleep Study 05/26/2025 External Device Data STL ABSTRACTION Provider, Abstract 05/06/2025 External Device Data STL ABSTRACTION Provider, Abstract 05/05/2025 External Device Data STL ABSTRACTION Provider, Abstract 04/14/2025 External Device Data STL ABSTRACTION Provider, Abstract 04/14/2025 External Device Data STL ABSTRACTION Provider, Abstract 04/14/2025 External Device Data STL ABSTRACTION Provider, Abstract 04/07/2025 External Device Data STL ABSTRACTION Provider, Abstract from Last 3 Months Immunizations Immunization Administration Dates Next Due (PFIZER)(12 YR UP) COVID-19 VACCINE - EMERGENCY USE AUTHORIZATION, MRNA, [id number]) 30 MCG/0.3 ML IM SUSP 07/19/2021,12/17/2020,11/19/2020 Influenza Seasonal Unspecifi ed Formulation IM 09/03/2019 Social History Tobacco Use Types Packs/Day Years Used Date Smoking Tobacco: Former Passive Smoke Exposure: Past Smokeless Tobacco: Former Tobacco Cessation:Counseling Given: Not Answered Comments:Quit smoking: stopped chewing Alcohol Use Standard Drinks/Week Comments No 0 (1 standard drink = 0.6 oz pur e alcohol) Feeling Safe Answer Date Recorded Are you in a relationship wi th someone who hurts you emotionally and/or physically? No 12/02/2024 Sex and Gender Information Value Date Recorded Sex Assigned at Not on file Legal Sex Male 4:50 PM SLD EDUCATIONAL AIDE Gender Identity Not on file Sexual Orientation Not on file Last Filed Vital Signs Vital Sign Reading Time Taken Comments Blood Pressure 128/82 06/13/2025 6:31 AM CDT Pulse 95 12/02/2024 1:15 PM SLD EDUCATIONAL AIDE Temperature 36.4 C (97.6 F) 12/02/2024 1:15 PM SLD EDUCATIONAL AIDE Respiratory Rate 16 12/02/2024 1:15 PM SLD EDUCATIONAL AIDE Oxygen Saturation 96% 12/02/2024 1:15 PM SLD EDUCATIONAL AIDE Inhaled Oxygen Concentration - - Weight 95.3 kg (210 lb) 02/10/2025 9:34 AM CDT p er Height 185.4 cm (6' 1 ) 12/02/2024 9:19 AM SLD EDUCATIONAL AIDE Body Mass Index 27.71 12/02/2024 9:19 AM SLD EDUCATIONAL AIDE Plan of Treatment Upcoming Encounters Date Type Department Care Team (Late st Contact Info) Description 08/13/2025 12:45 PM CDT Office Visit [facility] [address] [place] [address] Kenyatta Dmaon MD [address] [place] [address] Health Maintenance Due Date Last Done Comments RSV VACCINE (60+ or ) (1 - 1-dose 75+ series) 2023 Medicare Advantage ([place]) Preventative Visit/Annual Wellness Visit 10/22/2024 ZOSTER VACCINE (3 of 3) 03/10/2025 01/13/2025, 10/23 INFLUENZA VACCINE (#1) 2025 , 08/08/2023, 08/08/2023, Additional history exists COVID-19 Vaccine ( - 2024-2 6 season) 2025 08/08/2023, 08/02/2022, 07/19/2021, Additional history exists DTAP/TDAP/TD VACCINES (2 - T d or Tdap) 12/25/2034 12/25/2024 PNEUMOCOCCAL VACCINE 50+ YEARS Completed 0 01/13/2025, 09/18/2017, 07/24/2014 Medical Devices Implanted Type Area Candy Bar Attendant Device Identifier Shelf Expiration Date Model / Serial / Lot Clip Polymer Vesolock Lrg 09622x - [id number] Implanted:Qty: 1 on 12/24/2019 by Ethan Mathis MD Clip Right: Kidney TELEFLEX- WECK CLOSURE SYS 02/19/2022 [id number] / / [id number] Clip Polymer Vesolock Lrg [id number] - [id number] Implanted:Qty: 1 on 12/24/2019 by Ethan Mathis MD Clip Right: Kidney TELEFLEX- WECK CLOSURE SYS 02/19/2022 [id number] / / [id number] Clip Hemolok Lrg 880485 - Csc - [id number] Implanted: 020 by Ethan Mathis MD (Quantity not on file) Clip Right: Kidney TELEFLEX- WECK CLOSURE SYS [id number] 04/29/2024 [id number] / / [id number] Clip Hemolok Lrg [id number] - Csc - [id number] Implanted: 020 by Ethan Mathis MD (Quantity not on file) Clip Right: Kidney TELEFLEX- WECK CLOSURE SYS [id number] 04/29/2024 [id number] / / [id number] Clip Hemolok Lrg [id number] - Csc - [id number] Implanted: 020 by Ethan Mathis MD (Quantity not on file) Clip Right: Kidney TELEFLEX- WECK CLOSURE SYS [id number] 04/29/2024 [id number] / / [id number] Clip Hemolok Ml 198071 - Csc - [id number] Implanted: 020 by Ethan Mathis MD (Quantity not on file) Clip Right: Kidney TELEFLEX- WECK CLOSURE SYS [id number] 12/25/2022 [id number] / / [id number] Hemostatic Surgicel 3x4in 194 - [id number] Implanted:Qty: 1 on 12/02/2024 by Jack Moya MD at [facility] Hemostatic Right: Neck J&J- [employer] 09/20/2028 1943 / / [id number] Remote Monitor Inspire Obstruct Sleep Xtrnl Model 2580 - [id number] Implanted:Qty: 1 on 12/02/2024 by Jack Moya MD at [facility] Integral Right: Chest INSPIRE MED SYS 05/22/2027 2580 / [id number] / Lead Neurostimulator Inspire Stim Obstruct Sleep 4063 - [id number] Implanted:Qty: 1 on 12/02/2024 by Jack Moya MD at [facility] Lead Right: Neck INSPIRE MED SYS 11/26/2026 4063 / [id number] / Lead Neurostimulator Inspire Respiration-Sensi ng Obstruct Sleep 4340 - [id number] Implanted:Qty: 1 on 12/02/2024 by Jack Moya MD at [facility] Lead Right: Chest INSPIRE MED SYS 05/09/2027 4340 / [id number] / Lead Neurostimulator Inspire Pulse Gen Obstruct Sleep 3028 - [id number] Implanted:Qty: 1 on 12/02/2024 by Jack Moya MD at [facility] Lead Right: Chest INSPIRE MED SYS 05/22/2027 3028 / [id number] / Sealant Fibrin Evicel 2ml 3902 - [id number] Implanted: 020 by Ethan Mathis MD (Quantity not on file) Other Right: Kidney J&J- [employer] [id number] 05/20/2021 3902 / / [id number] Procedures Procedure Name Priority Date/Time Associated Diagnosis Comments POLYSOMNOGRAPHY 4 OR MORE PARAMETERS Routine 06/26/2025 MARY (obstructive sleep apnea) from Last 3 Months Results * POLYSOMNOGRAPHY 4 OR MORE PARAMETERS (06/26/2025) A+H INDEX RDI INDEX LOW O2 SAT% PLMS INDEX TOTAL PLMS AROUSAL INDEX CPAP PRESSURE (cm) BILEVEL PRESSURE MSLT AVERAGE LATENCY MSLT REM ONSET/S us Lmaont Maldonado MD [facility] ORDERABLES Haylie l Result from Last 3 Months Insurance * Guarantor: RORY MCKENZIE Account Type Relation to Patient Date of Phone Billing Address Personal/Family [address] [place] [address] [facility] Medicare Part D [facility] MEDIC[facility] HMO Advance Directives For more information, please contact: [phone] Documents on File Type Date Recorded 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
--- OUTSIDE RECORDS SUMMARY | 2025-07-04 17:22 | XMS_ITS | Encounter Summary ---
Author Organization [facility] Address [address] [place] [address] Care Team Providers Care Crimper Assembler Name Role Phone Lamin Lewis MD Primary Care Provider [phone] Encounter Details Date Type Department Care Team (Latest Contact Info) Description 01/14/1999 Outpatient Historical [facility] [place] [phone] Lalita Quintanilla [address], [address] [place] [address] Reflux esophagitis (Primary Dx); Allergic rhinitis, cause unspecified; Diverticulosis of colon Social History Tobacco Use Types Packs/Day Years Used Date Smoking Tobacco: Never Assessed Sex and Gender Information Value Date Recorded Sex Assigned at Not on file Legal Sex Male 3:43 AM VC++ DEVELOPER Gender Identity Not on file Sexual Orientation Not on file documented as of this encounter Plan of Treatment Not on file documented as of this encounter Visit Diagnoses Diagnosis Reflux esophagitis- Primary Allergic rhinitis, cause unspecified Diverticulosis of colon Diverticulosis of colon (without mention of hemorrhage) documented in this encounter Care Teams Crimper Assembler Relationship Specialty Start Date End Date Lamin Lewis MD [address] [address] PCP - General 01/23/03 documented as of this encounter
--- OUTSIDE RECORDS SUMMARY | 2025-07-04 17:22 | XMS_ITS | Encounter Summary ---
Author Organization [facility] Address [address] [place] [address] Care Team Providers Care Customer Order Clerk Name Role Phone Lamin Lewis MD Primary Care Provider [phone] Encounter Details Date Type Department Care Team (Latest Contact Info) Description 07/22/2003 Outpatient Historical [facility] [address] [place] [phone] Andre Sheridan MD NO ADDRESS ON FILE ANAL OR RECTAL PAIN (Primary Dx) Social History Tobacco Use Types Packs/Day Years Used Date Smoking Tobacco: Never Assessed Sex and Gender Information Value Date Recorded Sex Assigned at Not on file Legal Sex Male 3:43 AM TECHNICAL BUSINESS ANALYST Gender Identity Not on file Sexual Orientation Not on file documented as of this encounter Plan of Treatment Not on file documented as of this encounter Visit Diagnoses Diagnosis Anal or rectal pain- Primary documented in this encounter Care Teams Customer Order Clerk Relationship Specialty Start Date End Date Lamin Lewis MD [address] [address] PCP - General 01/23/03 documented as of this encounter
--- OUTSIDE RECORDS SUMMARY | 2025-07-04 17:22 | XMS_ITS ---
Author Organization [facility] tone Address [address] [place] [address] Care Team Providers Care Asphalt Machine Operator Name Role Phone Lamin Lewis MD Primary Care Provider [phone] Active Problems Problem Noted Date Diagnosed Date History of renal cell carcinoma 05/11/2020 SUKUMAR (acute kidney injury) 02/10/2020 Right renal mass 11/17/2019 History of prostate cancer 11/17/2019 Male stress incontinence 11/17/2019 SBO (small bowel obstruction) 08/31/2009 Right corneal abrasion Current Treatment and Therapy Plans No current plan information found. Past Treatment and Therapy Plans No past plan information found. Lifetime Dose Tracking * Chemical Lifetime Dose Automatic Entry Manual Entr y Effective Dose 18.9 mSv 18.9 mSv 0 mSv Total DLP 1,099 DLP 1,099 DLP 0 DLP CTDIvol Max 10.6 mGy 10.6 mGy 0 mGy CTDIvol Min 9.8 mGy 9.8 mGy 0 mGy Resolved Problems Problem Noted Date Diagnosed Date Resolved Date Clear cell renal cell carcinoma, right 12/25/2019 03/02/2021 Cancer Staging:Clinical: Unsigned Pathologic stage from 12/25/2019:Stage Unknown(pT1b, pNX) - Signed by Thien Suresh MD on 12/25/2019
--- OUTSIDE RECORDS SUMMARY | 2025-07-04 17:22 | XMS_ITS ---
Author Organization [facility] tone Address [address] [facility] [place] [address] Care Team Providers Care Epic Ambulatory Specialists Name Role Phone Lamin Lewis MD Primary Care Provider [phone] Active Problems Problem Noted Date Diagnosed Date [...] Automatic Entry Manual Entr y Effective Dose 34.35 mSv 15.45 mSv 18.9 mSv Total DLP 4,796.17 DLP 3,697.17 DLP 1,099 DLP CTDIvol Max 206.28 mGy 195.68 mGy 10.6 mGy CTDIvol Min 146.94 mGy 137.14 mGy 9.8 mGy Resolved Problems Problem Noted Date Diagnosed Date Resolved Date Clear cell renal cell carcinoma, right 12/25/2019 03/02/2021 Cancer Staging:Clinical: Unsigned Pathologic stage from 12/25/2019:Stage Unknown(pT1b, pNX) - Signed by Thien Suresh MD on 12/25/2019
--- OUTSIDE RECORDS SUMMARY | 2025-07-04 17:22 | XMS_ITS | Encounter Summary ---
Author Organization [facility] Address [address] [place] [address] Care Team Providers Care Immigration Lawyer Name Role Phone Lamin Lewis MD Primary Care Provider [phone] Encounter Details Date Type Department Care Team (Latest Contact Info) Description 12/12/2002 Outpatient Historical [facility] Ham Donis MD Rectal/anal hemorrhage (Primary Dx) Social History Tobacco Use Types Packs/Day Years Used Date Smoking Tobacco: Never Assessed Sex and Gender Information Value Date Recorded Sex Assigned at Not on file Legal Sex Male 3:43 AM THREAD SPOOLER Gender Identity Not on file Sexual Orientation Not on file documented as of this encounter Plan of Treatment Not on file documented as of this encounter Visit Diagnoses Diagnosis Rectal/anal hemorrhage- Primary Hemorrhage of rectum and anus documented in this encounter Care Teams Immigration Lawyer Relationship Specialty Start Date End Date Lamin Lewis MD [address] [address] PCP - General 01/23/03 documented as of this encounter
--- OUTSIDE RECORDS SUMMARY | 2025-07-04 17:22 | XMS_ITS | Encounter Summary ---
Author Organization [facility] Address [address] [place] [address] Care Team Providers Care Video Game Animator Name Role Phone Lamin Lewis MD Primary Care Provider [phone] Encounter Details Date Type Department Care Team (Latest Contact Info) Description 07/22/2003 Outpatient Historical [facility] Pain Management Procedures [address] [place] [phone] Andre Sheridan MD NO ADDRESS ON FILE ANAL OR RECTAL PAIN (Primary Dx) Social History Tobacco Use Types Packs/Day Years Used Date Smoking Tobacco: Never Assessed Sex and Gender Information Value Date Recorded Sex Assigned at Not on file Legal Sex Male 3:43 AM DITCH CLEANER Gender Identity Not on file Sexual Orientation Not on file documented as of this encounter Plan of Treatment Not on file documented as of this encounter Visit Diagnoses Diagnosis Anal or rectal pain- Primary documented in this encounter Care Teams Video Game Animator Relationship Specialty Start Date End Date Lamin Lewis MD [address] [place] [address] PCP - General 01/23/03 documented as of this encounter
--- OUTSIDE RECORDS SUMMARY | 2025-07-04 17:22 | XMS_ITS | Encounter Summary ---
Author Organization [facility] Address [address] [place] [address] Care Team Providers Care Tax Commissioner Name Role Phone Lamin Lewis MD Primary Care Provider [phone] Encounter Details Date Type Department Care Team (Latest Contact Info) Description 05/26/2003 Outpatient Historical [facility] General and Trauma Surgery-[address] [place] [address] Macario Henderson MD [address] [place] [address] [address] [place] [address] SURGERY FOLLOWUP, UNSPEC (Primary Dx) Social History Tobacco Use Types Packs/Day Years Used Date Smoking Tobacco: Never Assessed Sex and Gender Information Value Date Recorded Sex Assigned at Not on file Legal Sex Male 3:43 AM PAPER FEEDER Gender Identity Not on file Sexual Orientation Not on file documented as of this encounter Plan of Treatment Not on file documented as of this encounter Visit Diagnoses Diagnosis Follow-up examination, following unspecified surgery- Primary documented in this encounter Care Teams Tax Commissioner Relationship Specialty Start Date End Date Lamin Lewis MD [address] [facility] [address] [place] [address] PCP - General 01/23/03 documented as of this encounter
--- OUTSIDE RECORDS SUMMARY | 2025-07-04 17:22 | XMS_ITS | Encounter Summary ---
Author Organization [facility] Address [address] [place] [address] Care Team Providers Care Motorboat Mechanic Inboard Name Role Phone Lamin Lewis MD Primary Care Provider [phone] Encounter Details Date Type Department Care Team (Latest Contact Info) Description 06/29/2003 Outpatient Historical [facility] Chronic Pain [address] [place] [phone] Andre Sheridan MD NO ADDRESS ON FILE ANAL OR RECTAL PAIN (Primary Dx) Social History Tobacco Use Types Packs/Day Years Used Date Smoking Tobacco: Never Assessed Sex and Gender Information Value Date Recorded Sex Assigned at Not on file Legal Sex Male 3:43 AM WATCH PARTS INSPECTOR Gender Identity Not on file Sexual Orientation Not on file documented as of this encounter Plan of Treatment Not on file documented as of this encounter Visit Diagnoses Diagnosis Anal or rectal pain- Primary documented in this encounter Care Teams Motorboat Mechanic Inboard Relationship Specialty Start Date End Date Lamin Lewis MD [address] [address] PCP - General 01/23/03 documented as of this encounter
--- OUTSIDE RECORDS SUMMARY | 2025-07-04 17:22 | XMS_ITS | Encounter Summary ---
Author Organization [facility] Address [address] [place] [address] Care Team Providers Care Seafood Farmer Name Role Phone Lamin Lewis MD Primary Care Provider [phone] Encounter Details Date Type Department Care Team (Latest Contact Info) Description 06/29/2003 Outpatient [facility] [address] [place] [phone] Andre Sheridan MD NO ADDRESS ON FILE ANAL OR RECTAL PAIN (Primary Dx) Social History Tobacco Use Types Packs/Day Years Used Date Smoking Tobacco: Never Assessed Sex and Gender Information Value Date Recorded Sex Assigned at Not on file Legal Sex Male 3:43 AM CUSTOMER CONTACT SPECIALIST Gender Identity Not on file Sexual Orientation Not on file documented as of this encounter Plan of Treatment Not on file documented as of this encounter Visit Diagnoses Diagnosis Anal or rectal pain- Primary documented in this encounter Care Teams Seafood Farmer Relationship Specialty Start Date End Date Lamin Lewis MD [address] [address] PCP - General 01/23/03 documented as of this encounter
--- OUTSIDE RECORDS SUMMARY | 2025-07-04 17:22 | XMS_ITS | Encounter Summary ---
Author Organization [facility] Address [address] [place] [address] Care Team Providers Care Asset Protection Officer Name Role Phone Lamin Lewis MD Primary Care Provider [phone] Encounter Details Date Type Department Care Team (Latest Contact Info) Description 09/08/1999 Outpatient Historical [facility] General and Trauma Surgery-[address] [place] [address] Celio Allen MD NO ADDRESS ON FILE Diverticulosis of small intestine with hemorrhage (Primary Dx) Social History Tobacco Use Types Packs/Day Years Used Date Smoking Tobacco: Never Assessed Sex and Gender Information Value Date Recorded Sex Assigned at Not on file Legal Sex Male 3:43 AM SECRET SERVICE AGENT Gender Identity Not on file Sexual Orientation Not on file documented as of this encounter Plan of Treatment Not on file documented as of this encounter Visit Diagnoses Diagnosis Diverticulosis of small intestine with hemorrhage- Primary documented in this encounter Care Teams Asset Protection Officer Relationship Specialty Start Date End Date Lamin Lewis MD [address] [address] PCP - General 01/23/03 documented as of this encounter
--- OUTSIDE RECORDS SUMMARY | 2025-07-04 17:22 | XMS_ITS | Encounter Summary ---
Author Organization [facility] Address [address] [place] [address] Care Team Providers Care Hydrogen Cell Tender Name Role Phone Lamin Lewis MD Primary Care Provider [phone] Encounter Details Date Type Department Care Team (Late st Contact Info) Description 06/26/2003 Outpatient Historical [facility] Specialty Nursing Services [address] [place] [address] Macario Henderson MD [address] [facility] [address] [place] [address] Social History Tobacco Use Types Packs/Day Years Used Date Smoking Tobacco: Never Assessed Sex and Gender Information Value Date Recorded Sex Assigned at Not on file Legal Sex Male 3:43 AM MECHANICAL SYSTEMS DESIGN ENGINEER Gender Identity Not on file Sexual Orientation Not on file documented as of this encounter Plan of Treatment Not on file documented as of this encounter Visit Diagnoses Not on filedocumented in this encounter Care Teams Hydrogen Cell Tender Relationship Specialty Start Date End Date Lamin Lewis MD [address] [facility] 1 [place], [place] [address] PCP - General 01/23/03 documented as of this encounter
--- OUTSIDE RECORDS SUMMARY | 2025-07-04 17:22 | XMS_ITS | Encounter Summary ---
Author Organization [facility] Address [address] [place] [address] Care Team Providers Care Night Time Babysitter Name Role Phone Lamin Lewis MD Primary Care Provider [phone] Encounter Details Date Type Department Care Team (Latest Contact Info) Description 06/21/1999 Outpatient Historical [facility] General and Trauma Surgery-[address] [place] [address] Celio Allen MD NO ADDRESS ON FILE Diverticulosis of small intestine with hemorrhage (Primary Dx) Social History Tobacco Use Types Packs/Day Years Used Date Smoking Tobacco: Never Assessed Sex and Gender Information Value Date Recorded Sex Assigned at Not on file Legal Sex Male 3:43 AM MEDICAL CENTER REPRESENTATIVE Gender Identity Not on file Sexual Orientation Not on file documented as of this encounter Plan of Treatment Not on file documented as of this encounter Visit Diagnoses Diagnosis Diverticulosis of small intestine with hemorrhage- Primary documented in this encounter Care Teams Night Time Babysitter Relationship Specialty Start Date End Date Lamin Lewis MD [address] [address] PCP - General 01/23/03 documented as of this encounter
--- OUTSIDE RECORDS SUMMARY | 2025-07-04 17:22 | XMS_ITS | Encounter Summary ---
Author Organization [facility] Address [address] [place] [address] Care Team Providers Care Conventional Machinist Name Role Phone Lamin Lewis MD Primary Care Provider Encounter Details Date Type Department Care Team (Latest Contact Info) Description 08/15/1999 Outpatient Historical [facility] General and Trauma Surgery-[address] [place] [address] Celio Allen MD NO ADDRESS ON FILE Diverticulosis of small intestine with hemorrhage (Primary Dx) Social History Tobacco Use Types Packs/Day Years Used Date Smoking Tobacco: Never Assessed Sex and Gender Information Value Date Recorded Sex Assigned at Not on file 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
--- OUTSIDE RECORDS SUMMARY | 2025-07-04 17:22 | XMS_ITS | Encounter Summary ---
Author Organization [facility] Address [address] [place] [address] Care Team Providers Care Academic Support Assistant Name Role Phone Lamin Lewis MD Primary Care Provider [phone] Encounter Details Date Type Department Care Team (Latest Contact Info) Description 07/08/2003 Outpatient Historical [facility] [address] 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
--- OUTSIDE RECORDS SUMMARY | 2025-07-04 17:23 | XMS_ITS | Encounter Summary ---
Author Organization [facility] Address [address] [place] [address] Care Team Providers Care Train Station Agent Name Role Phone Lamin Lewis MD Primary Care Provider [phone] Encounter Details Date Type Department Care Team (Latest Contact Info) Description 08/13/2003 Outpatient Historical 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
--- OUTSIDE RECORDS SUMMARY | 2025-07-04 17:23 | XMS_ITS | Encounter Summary ---
Author Organization [facility] Address [address] [place] [address] Care Team Providers Care Lunchroom Worker Name Role Phone Lamin Lewis MD Primary Care Provider [phone] Encounter Details Date Type Department Care Team (Latest Contact Info) Description 08/13/[address] 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
--- OUTSIDE RECORDS SUMMARY | 2025-07-04 17:23 | XMS_ITS | Encounter Summary ---
Author Organization [facility] Address [address] [place] [address] Care Team Providers Care Cutting Room Supervisor Name Role Phone Lamin Lewis MD Primary Care Provider [phone] Encounter Details Date Type Department Care Team (Late st Contact Info) Description 07/07/2007 Outpatient Historical [facility] Specialty Nursing Services [address] 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
--- OUTSIDE RECORDS SUMMARY | 2025-07-04 17:23 | XMS_ITS | Patient Health Record ---
Author Organization [facility] Address [address] [place] [address] Care Team Providers Care Refrigeration Lead Name Role Phone Lamin Lewis Primary Care Provider Rekha Smith Unavailable [phone] Sal Izquierdo Unavailable [phone] Allergies Allergen (clinical drug ingredient) Drug/Non Drug Allergy documented on EMR Reaction Allergy Type Onset Date Status Substance with sulfonamide structure and antibacterial mechanism of action (substance) Sulfa Antibiotics Unknown Drug Allergy Active Reason For Referral No Information Medications Medication SIG (Take, Route, Frequency, Duration) Notes Start Date End Date Status Vitamin C-Dotty Hips 1000 MG Tablet 1 tablet Orally Once a day Active Metoprolol Succinate ER 50 MG Tablet Extended Release 24 Hour 1 tablet Orally Once a day Active Multivitamin Active B Complex-C - Tablet as directed Orally Active Montelukast Sodium 10 MG Tablet 1 tablet Orally Once a day Active Lactulose 10 GM/15ML Solution Oral; Duration: 90 Days PRN Active Venlafaxine HCl ER 150 MG Capsule Extended Release 24 Hour Oral; Duration: 90 Days Active Memantine HCl 10 MG Tablet 1 tablet Orally twice daily 12/31/2023 Active Furosemide 40 MG Tablet 1 tablet Orally twice a day; Duration: 90 days 01/22/2024 Active Venlafaxine HCl 75 MG Tablet 1 tablet with food Orally Once a day takes with 150mg Active Ipratropium [place] HFA 17 MCG/ACT Aerosol Solution 2 puffs Inhalation Four times a day As needed Active Simvastatin 20 MG Tablet 1 tablet in the evening Orally Once a day Active Fluticasone Propionate 50 MCG/ACT Suspension 1 spray in each nostril Nasally Once a day Active amLODIPine Besylate 10 MG Tablet 1 tablet Orally Once a day Active Potassium Chloride Yane ER 20 MEQ Tablet Extended Release 1 tablet with food Oral Once a day; Duration: 30 days Active Eliquis 5 MG Tablet 1 tablet Orally Twice a day Active QUEtiapine Fumarate 25 MG Tablet 1 tablet at bedtime Oral bid; Duration: 90 days Active Cetirizine HCl 10 MG Tablet 1 tablet Orally Once a day Active Omeprazole 20 MG Capsule Delayed Release 1 capsule 30 minutes before morning meal Orally Once a day Active ALPRAZolam 0.25 MG Tablet TAKE 1 TABLET BY MOUTH TWICE A DAY NEEDED. Oral; Duration: 15 Days Active oxyCODONE-Acetaminophen 5-325 MG Tablet Oral; Duration: 30 Days Active Social History Tobacco Use: Social History Observation Description Date Details (start date - stop date) Former Smoker NA - NA Social History Drugs/Alcohol: Social Info Question Answer Notes Caffeine Intake: 2-3 cups per day coffee or s ira Tobacco Use: Social Info Question Answer Notes Tobacco Control (Standard) Tobacco use: Former smoker How long has it been since you last smoked? Greater than 10 years Additional Details Category Social Info Options Details Drugs/Alcohol: Do you drink alcohol? No Section Notes: also quit chewing tobacco 10 years ago also quit chewing tobacco 10 years ago alcohol - negative caffeine - positive 1 cup coffee daily and multiple sodas also quit chewing tobacco 10 years ago alcohol - negative caffeine - positive 1 cup coffee daily and multiple sodas also quit chewing tobacco 10 years ago alcohol - negative caffeine - positive 1 cup coffee daily and multiple sodas Problems Problem Type SNOMED Code ICD Code Onset Dates Problem Status W/U Status Risk Notes Problem Alzheimer's disease (99089236) Alzheimer's disease, unspecified (G30.9) Active confirmed Problem hypercholesterolemia (disorder) (50707874) Hypercholesteremia (E78.00) Active confirmed Problem Dyspnea (301218687) SOB (shortne ss of breath) (R06.02) Active confirmed Problem Persistent atrial fibrillation (474114280) Persistent atrial fibrillation (I48.19) Active confirmed Problem Long-term current us e of anticoagulant (938942144) custodial current use of anticoagulant (Z79.01) Active confirmed Problem Atrial fibrillation (74382299) Atrial fibrillation (I48.91) Active confirmed Problem Edema (125995814) Lower extremit y edema (R60.0) Active confirmed Problem Atrial fibrillation (98991104) Atrial fibrillation, unspecified type (I48.91) Active confirmed Problem Atherosclerotic hear t disease of [place] coronary artery without angina pectoris (375931991436891) Arteriosclerosis of coronary artery (I25.10) Active confirmed Problem Pre-procedure evaluation check (682677116) Preoperative clearance (Z01.818) Active confirmed Problem Hypertension (52678637) Hypertension (I10) Active confirmed Problem Dementia (73000229) Dementia in other diseases classified elsewhere, unspecified severity, without behavioral disturbance, psychotic disturbance, mood disturbance, and anxiety (F02.80) Active confirmed Vital Signs Heart Rate 75 /min 11/13/2024 Blood pressure diastolic 80 mm Hg 11/13/2024 Oximetry 98 % 11/13/2024 Height-cm 185.42 cm 11/13/2024 Weight-kg 92.35 kg 11/13/2024 Height 73 in 11/13/2024 Blood pressure systolic 120 mm Hg 11/13/2024 Weight 203.6 lbs 11/13/2024 BMI 26.86 kg/m2 11/13/2024 Encounters Encounter Location Date Provider Diagnosis [facility] [address] [place] [phone] 11/13/2024 Rekha Iveyhite Persistent atrial fibrillation I48.19 ; Palpitations R00.2 ; Arteriosclerosis of coronary artery I25.10 ; Hypertension I10 ; Hypercholesteremia E78.00 ; terminal operations manager current use of anticoagulant Z79.01 and Lower extremity edema R60.0 Assessments Encounter Date Diagnosis (ICD Code) Assessment Notes Treatment Notes Treatment Clinical Notes Section Notes 11/13/2024 Persistent atrial fibrillation (ICD-10 - I48.19) Echocardiogram study done 6 months ago had shown moderately dilated atria with moderate aortic regurgitation and trace mitral regurgitation. Ejection fraction was 60 to 65%. Repeat Echo in [address] Izquierdo same day 11/13/2024 Palpitations (ICD-10 - R00.2) 11/13/2024 Arteriosclerosis of coronary artery (ICD-10 - I25.10) 11/13/2024 Hypertension (ICD-10 - I10) 11/13/2024 Hypercholesteremia (ICD-10 - E78.00) 11/13/2024 terminal operations manager current us e of anticoagulant (ICD-10 - Z79.01) 11/13/2024 Lower extremity deejay a (ICD-10 - R60.0) Plan Of Treatment Pending Test Test Name Order Date Prothrombin Time 37897 02/04/2024 Basic Metabolic Panel (BMP) 70360 2023 Lipid Panel Reflex DLDL 69470, 88799 Partial Thromboplastin Time 70138 2023 CBC Reflex Man Diff 28229, 24962 024 Echo Complete [id number] 11/13/2024 Electrocardiogram 12 Lead Tracing-[id number] 02/04/2024 Electrocardiogram (EKG) - 35101 03/25/20 24 Electrocardiogram (EKG) - 33564 11/13/19 Next Appt Details Provider Name:Sal Izquierdo , 07/22/2025 01:15:00 PM, [address] [place] [address], [phone], Insurance Providers Payer Name Payer Address Payer Phone Subscriber Number Group Number Insured Name Patient Relationship to Insured Coverage Start Date Coverage End Date [employer] [place] Medicare Replacement [address] [place] [address] [id number] Darshan Sullivan Self - patient is the insured Medical (General) History Medical History History ICD Code Prostate Cancer treated with radiation Right side hydrocele Partial colon resection Colostomy A fib HTN Seasonal allergies GERD Depression Covid positive Covid vaccines - yes Alzheimer's dementia Hernia surgeries Surgical History Surgery Date(Month/Year) 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 No significant disease noted. Left anterior descending artery, somewhat torturous, but a large vessel without significant stenosis. Circumflex is unremarkable. Right coronary artery is a large vessel, calcified, has approximately 40% to 50% mid stenosis at the acute marginal non flow limiting. 5.11.14
--- OUTSIDE RECORDS SUMMARY | 2025-07-04 17:23 | XMS_ITS | Encounter Summary ---
Author Organization [facility] Address [address] [place] [address] Care Team Providers Care Fiber Drier Operator Name Role Phone Lamin Lewis MD Primary Care Provider [phone] Encounter Details Date Type Department Care Team (Latest Contact Info) Description 12/16/2003 Outpatient Historical [facility] General and Trauma Surgery-[address] [place] [address] Macario Henderson MD [address] [place] [address] [address] [place] [address] ANAL OR RECTAL PAIN (Primary Dx); Rectal/anal ulcer Social History Tobacco Use Types Packs/Day Years Used Date Smoking Tobacco: Never Assessed Sex and Gender Information Value Date Recorded Sex Assigned at Not on file 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
--- OUTSIDE RECORDS SUMMARY | 2025-07-04 17:23 | XMS_ITS | Encounter Summary ---
Author Organization [facility] Address [address] [place] [address] Care Team Providers Care Medication Manager Name Role Phone Lamin Lewis MD Primary Care Provider [phone] Encounter Details Date Type Department Care Team (Latest Contact Info) Description 08/27/2003 Outpatient Historical [facility] Specialty Nursing Services [address] 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
--- OUTSIDE RECORDS SUMMARY | 2025-07-04 17:23 | XMS_ITS | Encounter Summary ---
Author Organization [facility] Address [address] [place] [address] Care Team Providers Care Manager Leadership Development Name Role Phone Lamin Lewis MD Primary Care Provider [phone] Encounter Details Date Type Department Care Team (Latest Contact Info) Description 09/22/2003 Outpatient Historical [facility] General and Trauma Surgery-[address] [place] [address] Macario Henderson MD [address] [place] [address] [address] [place] [address] ANAL OR RECTAL PAIN (Primary Dx); Rectal/anal ulcer Social History Tobacco Use Types Packs/Day Years Used Date Smoking Tobacco: Never Assessed Sex and Gender Information Value Date Recorded Sex Assigned at Not on file 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
--- OUTSIDE RECORDS SUMMARY | 2025-07-04 17:23 | XMS_ITS | Encounter Summary ---
Author Organization [facility] Address [address] [place] [address] Care Team Providers Care Document Control Manager Name Role Phone Lamin Lewis MD Primary Care Provider [phone] Encounter Details Date Type Department Care Team (Late st Contact Info) Description 06/06/2007 Outpatient Historical [facility] Specialty Nursing Services [address] 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
--- OUTSIDE RECORDS SUMMARY | 2025-07-04 17:23 | XMS_ITS | Encounter Summary ---
Author Organization [facility] Address [address] [place] [address] Care Team Providers Care Wool Grower Name Role Phone Lamin Lewis MD Primary Care Provider [phone] Encounter Details Date Type Department Care Team (Latest Contact Info) Description 06/06/2007 Outpatient Historical [facility] Urology- [place] [address] [facility] [address], 3[address] [place] [address] Lamin Lau MD [address] [place] [address] Malig Raz Prostate (Primary Dx); Impotence of Organic Origin Social History Tobacco Use Types Packs/Day Years Used Date Smoking Tobacco: Never Assessed Sex and Gender Information Value Date Recorded Sex Assigned at Not on file Legal Sex Male 3:43 AM 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
--- NOTE | 2025-07-04 17:27 | ECG_ITS ---
[facility] Test Date: 2025-07-04 Pat Name: Darshan Sullivan Department: Room: Gender: Male Home [facility]na: : [id number] Requested By: Burke Canas Order Number: [id number] Tara MD: Rima Guerra M.D. Measurements Intervals [place] Rate: 120 P: 0 IN: 0 QRS: 263 QRSD: 135 T: 11 QT: 349 QTc: 495 Interpretive Statements ATRIAL FIBRILLATION WITH RAPID VENTRICULAR RESPONSE RIGHT AXIS DEVIATION [QRS AXIS > 100] RIGHT BUNDLE BRANCH BLOCK [120+ ms QRS DURATION, UPRIGHT V1, 40+ ms S IN I/aVL/V4/V5/V6] Compared to ECG 09/25/2019 11:58:16 Right-axis deviation now present Right bundle-branch block now present Sinus rhythm no longer present Left-axis deviation no longer present Incomplete right bundle-branch block no longer present Electronically Signed On 07-07-2025 08:14:54 CDT by Rima Guerra M.D. [id number]
--- NOTE | 2025-07-04 19:58 | XRR_ITS ---
PROCEDURE INFORMATION: Exam: XR Chest Exam date and time: 07/04/2025 8:40 PM Age: 75 years old Clinical indication: Shortness of breath; Prior surgery; Surgery date: 6+ months; Surgery type: Pacemaker; Additional info: SOB TECHNIQUE: Imaging protocol: Radiologic exam of the chest. Views: 1 view. COMPARISON: CR XR chest 2V* [id number] 06/05/2025 3:06 PM FINDINGS: Lungs: Unremarkable. No consolidation. Pleural spaces: Unremarkable. No pleural effusion. No pneumothorax. Heart/Mediastinum: Unremarkable. No cardiomegaly. Bones/joints: Unremarkable. XR/XR chest 1V portable [id number] IMPRESSION: No acute findings.
[2025-07-04 20:39] VITALS: BP 151/76; PULSE 108; O2SAT 96
[2025-07-04 21:00] VITALS: BP 150/74; PULSE 114; O2SAT 91
[2025-07-04 21:30] VITALS: BP 129/86; PULSE 98; O2SAT 97
--- NOTE | 2025-07-04 21:37 | W.ED.SKABFB ---
HPI - Skin/Abscess/Foreign Bdy General: Chief complaint: Skin/Abscess/Foreign Body Stated complaint: Rash/ LE swelling Time Seen by Provider: 07/04/25 20:22 History of Present Illness: Patient is a 75-year-old male presents to ED due to rash. Patient's notes that she stopped his Prozac on , 2 days ago, with last dosage on Sunday, 3 days ago due to rash. He has rash noted on torso, and predominant red blotches to lower extremity. states that patient has memory issues, however when he asked her to sleep with them that night, he was rubbing his feet together, but she did not think that he created this in any way. There has been no other predominating features. He does have some shortness of breath, however this is chronic and does not change with the current symptoms Associated symptoms: Deny chills, fever(s) or vomiting Related Data Home Medications ?Medication ?Instructions ?Recorded ?Confirmed amlodipine 10 mg tablet 10 mg PO DAILY 10/21/19 04/27/22 cetirizine 10 mg tablet 10 mg PO DAILY 10/21/19 04/27/22 hydrocodone 5 mg-acetaminophen 325 1 tab PO Q5H PRN Pain, Severe 10/21/19 04/27/22 mg tablet montelukast 10 mg tablet 10 mg PO DAILY 10/21/19 04/27/22 omeprazole 20 mg capsule,delayed 20 mg PO DAILY 10/21/19 04/27/22 release simvastatin 20 mg tablet 20 mg PO QPM 10/21/19 04/27/22 venlafaxine 75 mg tablet 75 mg PO DAILY 10/21/19 04/27/22 fluticasone furoate 27.5 1 spray intranasal ONCE 10/27/19 04/27/22 mcg/actuation nasal spray,suspension memantine 10 mg tablet (Namenda) 10 mg PO BID 03/08/22 04/27/22 furosemide 40 mg tablet 40 mg PO DAILY 03/09/22 04/27/22 potassium chloride 10 mEq 10 meq PO DAILY 03/09/22 04/27/22 tablet,extended release loratadine 10 mg tablet 10 mg PO PRN 03/10/22 04/27/22 Previous Rx's ?Medication ?Instructions ?Recorded metoprolol succinate 100 mg 100 mg PO DAILY #90 tabs 04/16/20 tablet,extended release 24 hr oxycodone-acetaminophen 5 mg-325 5 - 325 tab PO Q4H PRN Pain, 03/10/22 mg tablet Severe 7 days #30 tabs Splint - Left wrist #1 ea 03/23/22 Allergies Allergy/AdvReac Type Severity Reaction Status Date / Time Sulfa (Sulfonamide Allergy ALGY-Rash Verified 07/04/25 17:22 Antibiotics) Review of Systems Const: Denies: fever(s), chills, body aches, fatigue or malaise Card: Denies: chest pain Resp: Denies: dyspnea GI: Denies: abdominal pain, vomiting or hematemesis : Denies: flank pain or dysuria Musc: Denies: back pain Skin/Breast: Reports: rash and erythema; Denies: pruritus, photosensitivity or skin pain PFSH ED PFSH: Medical History (Updated 07/05/25 @ 00:02 by ROSENDA Alexander) Hypertension Prostatic cancer Surgical History Hx of colostomy Hx of hemorrhoidectomy H/O hernia repair History of ureterostomy Family History Father , in his 50's-run over by a car heart disease No problems noted. Mother , in her 80's -colon cancer No problems noted. Social History Smoking and tobacco/nicotine status: never used tobacco/nicotine Alcohol intake: current Alcohol intake frequency: holidays/special occasions only Marital status: Current occupational status: retired Physical Exam Const: COMMON NORMALS: no acute distress, average body habitus and patient oriented x3 HENMT: COMMON NORMALS: normocephalic and atraumatic HEAD & SCALP: normocephalic and atraumatic Lymph: LYMPHATIC: no lymphadenopathy noted Chest: COMMONS NORMALS: normal inspection of the chest Cardio: COMMON NORMALS: regular rate and regular rhythm RATE: regular rate RHYTHM: regular rhythm GI: COMMON NORMALS: Normal to inspection, nondistended, normoactive bowel sounds present : COMMON NORMALS: Yes no CVA tenderness BLADDER/KIDNEY EXAM: Yes no CVA tenderness Back/Pelvis: COMMON NORMALS: no CVA tenderness Extremity: COMMON NORMALS: normal to inspection, full ROM and capillary refill normal Neuro: COMMON NORMALS: patient oriented x3 Skin: GENERAL SKIN EXAM: erythema LESIONS: lesion noted OTHER: Macular areas to lower extremity that are nonblanching, bright red, irregular. Torso with urticaria areas/vesicular areas front and back, light. Course Vital Signs: Vital signs: Vital Signs Temperature 97.9 F 07/04/25 17:16 Pulse Rate 99 07/04/25 23:41 Respiratory Rate 16 07/04/25 17:16 Blood Pressure 134/87 07/04/25 23:41 Pulse Oximetry 97 07/04/25 23:41 Oxygen Delivery Me thod Room Air 07/04/25 22:00 MDM - Skin/Abscess/Foreign Bdy Medicial Decision Making Patient is a 75-year-old gentleman with multiple medical issues that reports to the emergency room after allergic reaction to Prozac. Patient has dementia/does not recall any events. Patient's gives all of the history and review of systems. Last Prozac was taken on Sunday, and was stopped on . Patient has since had these red small areas to his chest. His does not believe this area is itchy. This was not there prior to Sunday rash. On night, patient was rubbing his legs together and there are red blotches on the medial lower extremities and lateral lower extremities however mainly medially. Patient's was asking if this could be the issue, however these areas are nonblanching darker irregular red and color. I suspect is associated with allergic reaction. Patient is not on any anticoagulation which is similar look. I have discussed a biopsy to this area with the patient's . She will follow-up with patient's primary care physician for further concerns. All of her questions answered to her satisfaction. Given his elevation of creatinine that was not expected, however patient has not been eating and drinking properly, will give 1 L IV fluids, which I suspect is the mild metabolic acidosis with a CO2 of 21, and have patient follow-up with primary care. Lab Data 07/04/25 21:42 07/04/25 21:42 Radiology Impressions Chest X-Ray 07/04/25 19:58 IMPRESSION: No acute findings. Laboratory Results WBC 14.87 10^3/uL (3.29-11.43) H 07/04/25 21:42 RBC 4.31 10^6/uL (3.85-5.65) 07/04/25 21:42 Hgb 13.40 g/dL (11.27-16.99) 07/04/25 21:42 Hct 39.9 % (37-53) 07/04/25 21:42 MCV 92.6 fl (82-101) 07/04/25 21:42 MCH 31.1 pg (27-33) 07/04/25 21: MCHC 33.6 g/dL (30-55) 07/04/25 21: RDW 13.5 % (12.1-15.1) 07/04/25: Plt Count 261 10^3/cmm (157-399) 07/04/25 21: MPV 11.2 fL (7.4-10.4) H 07/04/25 21:42 Neut % (Auto) 73.9 % 07/04/25 21: Lymph % (Auto) 12.3 % 07/04/25 21:42 [place] % (Auto) 12.4 % 07/04/25 21: Eos % (Auto) 0.5 % 07/04/25: Baso % (Auto) 0.2 % 07/04/25: Neut # (Auto) 11.00 10^3/uL (1.8-7.7) H 07/04/25 21:42 Lymph # (Auto) 1.8 10^3/uL (0.8-4.8) 07/04/25 21:42 [place] # (Auto) 1.8 10^3/uL (0.2-0.9) H 07/04/25 21:42 Eos # (Auto) 0.1 10^3/uL (0.0-0.8) 07/04/25: Baso # (Auto) 0.0 10^3/uL (0.0-0.1) 07/04/25 21: Nucleated RBC % (auto) 0 % 07/04/25 21: Nucleated RBCs # 0.0 /100WBC 07/04/25 21:42 PT 17.50 SECONDS (12.1-14.9) H 07/04/25 21:42 INR 1.35 (0.8-1.2) H 07/04/25 21:42 Sodium 138 mmol/L (136-145) 07/04/25 21:42 Potassium 4.4 mmol/L (3.5-5.1) 07/04/25 21:42 Chloride 101 mmol/L (98-107) 07/04/25 21:42 Carbon Dioxide 21 mmol/L (22-29) L 07/04/25 21:42 Anion Gap 20.4 (5-19) H 07/04/25 21:42 BUN 33 mg/dL (8-23) H 07/04/25 21:42 Creatinine 1.7 mg/dL (0.7-1.2) H 07/04/25 21:42 GFR Calculation Not Reportable 07/04/25 21:42 Glucose 103 mg/dL (65-115) 07/04/25 21:42 Calculated Osmolality 294 mOsm/kg (285-295) 07/04/25 21:42 Calcium 9.2 mg/dL (8.5-10.5) 07/04/25 21:42 Total Bilirubin 0.7 mg/dL (0.15-1.2) 07/04/25 21:42 AST 23 U/L (0-40) 07/04/25 21:42 ALT 18 U/L (0-41) 07/04/25 21:42 Alkaline Phosphatase 137 U/L (40-130) H 07/04/25 21:42 Total Protein 7.8 g/dL (6.6-8.7) 07/04/25 21:42 Albumin 3.7 g/dL (3.5-5.2) 07/04/25 21:42 Globulin 4.1 g/dL (1.3-4.6) 07/04/25 21:42 All radiology interpretation(s) finalized by discharge Discharge Plan Discharge Patient Disposition: Home Clinical Impression: Skin rash, Creatinine elevation, Metabolic acidosis Condition: Stable Prescriptions: No Action fluticasone furoate 27.5 mcg/actuation spray,suspension 1 spray INTRANASAL ONCE memantine [Namenda] 10 mg tablet 10 mg PO BID (DME) Splint - Left wrist See Rx Instructions .Route .MEDSUPPLY Qty: 1 0RF Rx Instructions: As directed metoprolol succinate 100 mg tablet extended release 24 hr 100 mg PO DAILY Qty: 90 0RF venlafaxine 75 mg Tablet 75 mg PO DAILY cetirizine 10 mg Tablet 10 mg PO DAILY hydrocodone-acetaminophen 5-325 mg Tablet 1 tab PO Q5H PRN (Reason: Pain, Severe) amlodipine 10 mg Tablet 10 mg PO DAILY simvastatin 20 mg Tablet 20 mg PO QPM omeprazole 20 mg Capsule,Delayed Release(Dr/Ec) 20 mg PO DAILY montelukast 10 mg tablet 10 mg PO DAILY furosemide 40 mg Tablet 40 mg PO DAILY potassium chloride 10 mEq tablet extended release 10 meq PO DAILY loratadine 10 mg tablet 10 mg PO PRN oxycodone-acetaminophen 5-325 mg tablet 5 - 325 tab PO Q4H PRN (Reason: Pain, Severe) 7 Days Qty: 30 0RF Discharge Orders: Discharge ED (Routine); Ordered 07/04/25 Ordered By: Suri Riojas Referrals: Lamin Lewis MD [Primary Care Provider, [facility]] Discharge Diet: Usual diet Discharge Activity: Resume usual activity Patient Instructions: Acute Rash (ED), Patient Portal & [facility]a Instructions Activity Restrictions/Additional Instructions: - Vaseline, Eucerin cream will help with any itching he may have - No additional findings were noted on. Follow-up with his primary doctor for possible referral to [facility] aide for biopsy - His creatinine (kidney lab) was slightly elevated from baseline. I do believe this is due to mild dehydration. IV fluids was given. - Wake him up every hour and have him drink water when he is awake, and deep breathe. Print Language: Libyan Coding Level of Care Code ED Harvest Manager for Daniela Pichardo
[2025-07-04 21:56] LABS: Hematocrit 39.9 % (37-53); Hemoglobin 13.40 g/dL (11.27-16.99); Mean Corpuscular HGB Conc 33.6 g/dL (30-55); Mean Corpuscular Hemoglobin 31.1 pg (27-33); Mean Corpuscular Volume 92.6 fl (82-101); Nucleated Red Blood Cells % 0 %; Platelet Count 261 10^3/cmm (157-399); Red Blood Count 4.31 10^6/uL (3.85-5.65); White Blood Count 14.87 10^3/uL (3.29-11.43)
[2025-07-04 22:00] VITALS: BP 117/66; PULSE 97; O2SAT 92
[2025-07-04 22:06] LABS: INR 1.35 (0.8-1.2); Prothrombin Time 17.50 SECONDS (12.1-14.9)
[2025-07-04 22:10] LABS: Alanine Aminotransferase 18 U/L (0-41); Albumin Level 3.7 g/dL (3.5-5.2); Alkaline Phosphatase 137 U/L (40-130); Anion Gap 20.4 (5-19); Aspartate Amino Transferase 23 U/L (0-40); Blood Urea Nitrogen 33 mg/dL (8-23); Calcium 9.2 mg/dL (8.5-10.5); Carbon Dioxide 21 mmol/L (22-29); Chloride 101 mmol/L (98-107); Globulin 4.1 g/dL (1.3-4.6); Glucose 103 mg/dL (65-115); Osmolality Calculated 294 mOsm/kg (285-295); Potassium 4.4 mmol/L (3.5-5.1); Sodium 138 mmol/L (136-145); Total Protein 7.8 g/dL (6.6-8.7)
[2025-07-04 22:12] LABS: Creatinine Clr Calc Pharmacy 44.0994
[2025-07-04 23:41] VITALS: BP 134/87; PULSE 99; O2SAT 97
== END 2025-07-05 00:11 | disposition home or self-care (01) ==
PROVIDERS: Emergency Medicine; Emergency Provider Physician Assistant; PCP Family Medicine
DX: R21 Rash and other nonspecific skin eruption (principal); E87.20 Acidosis, unspecified; R79.89 Other specified abnormal findings of blood chemistry; I10 Essential (primary) hypertension; Z85.46 Personal history of malignant neoplasm of prostate
CPT/HCPCS: 36415; 71045; 80053; 85025; 85610; 93005; 96360; 99285; J7030